=== PATIENT | male | born 1945 | race Caucasian/White ===

== ENCOUNTER 2017-08-12 13:33 | Emergency (ER) | payer MEDICARE, OTHER ==
[~2017-08-12] VITALS: Ht 185.4 cm; Wt 93.6 kg
[~2017-08-12 13:33] MED LIST: CIPR-9 PO; CODE30TA PO; MORP1TAB25 PO; XARE20TA PO
[2017-08-12] MEDS ORDERED: IOHEXOL 350 MG/ML 10 ML VIAL (for RAD DIAG) IVCONTRAST ONE (13:34)
[2017-08-12 13:35] VITALS: BP 139/74; PULSE 102; RESP 16; TEMP 100.3; O2SAT 96
[2017-08-12 13:53] LABS: BLOOD, URINE SMALL (NEG); GLUCOSE,URINE NEG (NEG); KETONE, URINE NEG (NEG); NITRITE,URINE NEG (NEG)
[2017-08-12 13:55] LABS: METHOD OF COLLECTION CLEAN CATCH; URINE COLOR YELLOW (YELLW/STRAW)
[2017-08-12 13:58] LABS: COMMENT (UR) CULTURE INDICATED; CULTURE IF INDICATED CULTURE INDICATED; RBC, URINE 0-3 /hpf (0-3)
[2017-08-12 14:10] VITALS: BP 120/77; PULSE 98; RESP 16; O2SAT 93
[2017-08-12 14:24] LABS: AUTOMATED NEUTROPHIL # 9.9 TH/MM3 (1.8-7.7); BASOPHIL # 0.1 TH/MM3 (0-0.2); BASOPHIL % 0.5 % (0.0-2.0); EOSINOPHIL % 0.4 % (0.0-4.0); HEMATOCRIT 32.4 % (39.0-51.0); HEMO FLAGS DIFF FINAL; LYMPH % 5.2 % (9.0-44.0); LYMPHOCYTE # 0.6 TH/MM3 (1.0-4.8); MEAN CELL VOLUME 86.1 FL (80.0-100.0); MEAN CORPUSCULAR HEMOGLOBIN 28.2 PG (27.0-34.0); MEAN CORPUSCULAR HGB CONC 32.7 % (32.0-36.0); MONO % 8.6 % (0.0-8.0); NEUT % 85.3 % (16.0-70.0); PLATELET COUNT 281 TH/MM3 (150-450); RED BLOOD COUNT 3.76 MIL/MM3 (4.50-5.90); RED CELL DISTRIBUTION WIDTH 13.7 % (11.6-17.2); WHITE BLOOD COUNT 11.6 TH/MM3 (4.0-11.0)
[2017-08-12 14:31] LABS: CHLORIDE 95 MEQ/L (98-107); POTASSIUM 4.1 MEQ/L (3.5-5.1); SODIUM (NA) 132 MEQ/L (136-145)
[2017-08-12 14:35] LABS: ANION GAP 7 MEQ/L (5-15); BICARBONATE 29.6 MEQ/L (21.0-32.0); BLOOD UREA NITROGEN 16 MG/DL (7-18)
[2017-08-12 14:36] LABS: APTT (PATIENT) 35.2 SEC (24.3-30.1); INTERNATIONAL NORMALIZED RATIO 1.1 RATIO; PROTHROMBIN TIME - PATIENT 12.2 SEC (9.8-11.6)
[2017-08-12 14:38] LABS: ALT (GPT) 78 U/L (12-78); AST (GOT) 94 U/L (15-37); GLOMERULAR FILTRATION RATE 74 ML/MIN (>89)
[2017-08-12 14:40] LABS: TOTAL BILIRUBIN ADULT 0.5 MG/DL (0.2-1.0)
[2017-08-12 14:41] LABS: ALKALINE PHOSPHATASE 156 U/L (45-117)
--- NOTE | 2017-08-12 14:47 | RADRPT ---
EXAM DATE/TIME: 08/12/2017 14:26 [facility] COMPARISON: CHEST SINGLE AP, July 17, 2015, 14:36. INDICATIONS : Fever post recent prostate removal. MEDICAL HISTORY : Hypercholesterolemia. Hypertension Arthritis. TIA. A-fib. CAD. SURGICAL HISTORY : Total knee replacement, left. Total knee replacement, right. Cardiac ablation. Cardiac cath. Right s houlder. Right ankle. ENCOUNTER: Initial ACUITY: 2 days PAIN SCORE: 0/10 LOCATION: chest FINDINGS: A single view of the chest demonstrates the lungs to be symmetrically aerated without evidence of mas s, infiltrate or effusion. The cardiomediastinal contours are unremarkable. Osseous structures are intact. CONCLUSION: No acute cardiopulmonary disease. Brett Mcginnis MD on August 12, 2017 at 14:45 Board Certified Radiologist. This report was verified electronically.
[2017-08-12] MEDS ORDERED: cefTRIAXone INJ 1,000 MG in SODIUM CHLORIDE 0.9% INJ 100 ML IV ONE (15:00)
[2017-08-12] MEDS ORDERED: SIMV5TAB3 PO (15:05)
[2017-08-12] MEDS ORDERED: HYDR50TA3 PO (15:05)
[2017-08-12] MEDS ORDERED: METO25TA6 PO (15:05)
[2017-08-12] MEDS ORDERED: GABA300C5 PO (15:05)
--- NOTE | 2017-08-12 15:10 | PD ---
HPI Chief Complaint: Fever Time Seen by Provider: 13:47 Travel History International Travel<30 days: No Contact w/Intl Traveler<30days: No Traveled to known affect area: No History of Present Illness HPI PATIENT STATES THAT HE HAS HAD FEVER OVER LAST 4 DAYS OR SO. PREVIOUS TO THIS HAD A PROSTATE PROCEDURE AT BEGINNING OF (ADVISED TO STOP XARELTO DURING THAT TIME WHICH HE DID, BUT HE NEVER RESTARTED IT) AND A FEW WEEKS LATER HE DEVELOPED SOME REDNESS AND DRAINAGE FROM TUBING OVER HIS ABDOMEN, HE WAS STARTED ON PO ABX AND APPARENTLY IMPROVED (JUST FINISHED LEVAQUIN ABOUT 4-5 DAYS AGO)...PATIENT STARTED HAVING DYSURIA AND FREQUENCY AND WAS TOLD TO TAKE AZO BY HOME HEALTH PROVIDER. PATIENT IS HERE ESSENTIALLY FOR FEVER. PFSH Past Medical History Hx Anticoagulant Therapy: Yes (XARELTO) Arthritis: Yes Asthma: No Atrial Fibrillation: Yes Blood Disorders: No Anxiety: No Heart Rhythm Problems: Yes (AFIB) Cancer: No Cardiac Catheterization: Yes Cardiovascular Problems: Yes (AF) High Cholesterol: Yes Chemotherapy: No Chest Pain: No Congestive Heart Failure: No COPD: No Cerebrovascular Accident: Yes (TIA) Coronary Artery Disease: Yes Diabetes: No Diminished Hearing: No Endocrine: No GERD: No Hiatal Hernia: No Heparin Induced Thrombocytopen: Yes Hypertension: Yes Musculoskeletal: Yes (r arthritis, orthopedic surgeries) Neurologic: Yes Immunizations Current: Yes Tetanus Vaccination: < 5 Years Influenza Vaccination: Yes Past Surgical History Abdominal Surgery: No AICD: No Arteriovenous Shunt: No Cardiac Surgery: Yes (ABLATION) Ear Surgery: No Endocrine Surgery: No Eye Surgery: No Genitourinary Surgery: No Gynecologic Surgery: No Joint Replacement: Yes (r knee;L KNEE) Oral Surgery: No Thoracic Surgery: No Other Surgery: Yes (R SHOULDER, R ANKLE) Social History Alcohol Use: No Tobacco Use: No Substance Use: No Allergies-Medications (Allergen,Severity, Reaction): Coded Allergies: No Known Allergies (Unverified , 08/12/17) Reported Meds & Prescriptions Reported Meds & Active Scripts Active Bactrim DS (Sulfamethoxazole-Trimethoprim) 800-160 Mg Tab 1 Tab PO BID Reported Hydrochlorothiazide 50 Mg Tab Unknown Dose PO DAILY Gabapentin 300 Mg Cap Unknown Dose PO TID Simvastatin 5 Mg Tab Unknown Dose PO DAILY Metoprolol Succinate ER 24 HR (Metoprolol Succinate) 25 Mg Tab Unknown Dose PO DAILY Codeine Sulfate 30 Mg Tab 30 Mg PO Q4HR PRN Morphine ER (Morphine Sulfate) 30 Mg Tab 30 Mg PO BID Review of Systems Except as stated in HPI: all other systems reviewed are Neg General / Constitutional: Positive: Fever Genitourinary: Positive: Urgency, Frequency, Dysuria Physical Exam Narrative GENERAL: SKIN: Warm and dry. HEAD: Atraumatic. Normocephalic. EYES: Pupils equal and round. No scleral icterus. No injection or drainage. ENT: No nasal bleeding or discharge. Mucous membranes pink and moist. NECK: Trachea midline. No JVD. CARDIOVASCULAR: Regular rate and rhythm. RESPIRATORY: No accessory muscle use. Clear to auscultation. Breath sounds equal bilaterally. GASTROINTESTINAL: Abdomen soft, non-tender, nondistended. SUPRAPUBIC INCISION IS HEALING WELL, WITHOUT INDURATION OR DRAINAGE MUSCULOSKELETAL: Extremities without clubbing, cyanosis, or edema. No obvious deformities. NEUROLOGICAL: Awake and alert. No obvious cranial nerve deficits. Motor grossly within normal limits. Five out of 5 muscle strength in the arms and legs. Normal speech. PSYCHIATRIC: Appropriate mood and affect; insight and judgment normal. Data Data Last Documented VS Vital Signs Date Time Temp Pulse Resp B/P (MAP) Pulse Ox O2 Delivery O2 Flow Rate FiO2 08/12/17 16:29 08/12/17 16:18 100.7 87 16 96 Room Air Orders Orders Urinalysis - C+S If Indicated (08/12/17 13:41) Urine Culture (08/12/17 13:45) Complete Blood Count With Diff (08/12/17 13:57) Comprehensive Metabolic Panel (08/12/17 13:57) Troponin I (08/12/17 13:57) Prothrombin Time / Inr (Pt) (08/12/17 13:57) Act Partial Throm Time (Ptt) (08/12/17 13:57) Lipase (08/12/17 13:57) Thyroid Stimulating Hormone (08/12/17 13:57) Influenzae A/B Antigen (08/12/17 13:57) Chest, Single Ap (08/12/17 13:57) Iv Access Insert/Monitor (08/12/17 13:57) Ecg Monitoring (08/12/17 13:57) Oximetry (08/12/17 13:57) Ct Abd/Pel W Iv Contrast(Rout) (08/12/17 14:02) Ct Pulmonary Angiogram (08/12/17 14:17) Us Leg Venous Doppler Bilat (08/12/17 14:17) Ceftriaxone Inj (Rocephin Inj) (08/12/17 15:00) Iohexol 350 Inj (Omnipaque 350 Inj) (08/12/17 13:34) Ibuprofen (Motrin) (08/12/17 15:45) Labs Laboratory Tests Test 08/12/17 13:45 08/12/17 14:19 Urine Collection Type CLEAN CATCH Urine Color YELLOW Urine Turbidity CLEAR Urine pH 6.0 Urine Specific [place] 1.020 Urine Protein TRACE mg/dL Urine Glucose (UA) NEG mg/dL Urine Ketones NEG mg/dL Urine Occult Blood SMALL Urine Nitrite NEG Urine Bilirubin NEG Urine Leukocyte Esterase TRACE Urine RBC 0-3 /hpf Urine WBC 20-24 /hpf Urine WBC Clumps OCC Microscopic Urinalysis Comment CULTURE INDICATED White Blood Count 11.6 TH/MM3 Red Blood Count 3.76 MIL/MM3 Hemoglobin 10.6 GM/DL Hematocrit 32.4 % Mean Corpuscular Volume 86.1 FL Mean Corpuscular Hemoglobin 28.2 PG Mean Corpuscular Hemoglobin Concent 32.7 % Red Cell Distribution Width 13.7 % Platelet Count 281 TH/MM3 Mean Platelet Volume 8.4 FL Neutrophils (%) (Auto) 85.3 % Lymphocytes (%) (Auto) 5.2 % Monocytes (%) (Auto) 8.6 % Eosinophils (%) (Auto) 0.4 % Basophils (%) (Auto) 0.5 % Neutrophils # (Auto) 9.9 TH/MM3 Lymphocytes # (Auto) 0.6 TH/MM3 Monocytes # (Auto) 1.0 TH/MM3 Eosinophils # (Auto) 0.0 TH/MM3 Basophils # (Auto) 0.1 TH/MM3 CBC Comment DIFF FINAL Differential Comment Prothrombin Time 12.2 SEC Prothromb Time International Ratio 1.1 RATIO Activated Partial Thromboplast Time 35.2 SEC Blood Urea Nitrogen 16 MG/DL Creatinine 0.99 MG/DL Random Glucose 103 MG/DL Total Protein 7.2 GM/DL Albumin 2.4 GM/DL Calcium Level 8.8 MG/DL Alkaline Phosphatase 156 U/L Aspartate Amino Transf (AST/SGOT) 94 U/L Alanine Aminotransferase (ALT/SGPT) 78 U/L Total Bilirubin 0.5 MG/DL Sodium Level 132 MEQ/L Potassium Level 4.1 MEQ/L Chloride Level 95 MEQ/L Carbon Dioxide Level 29.6 MEQ/L Anion Gap 7 MEQ/L Estimat Glomerular Filtration Rate 74 ML/MIN Troponin I LESS THAN 0.02 NG/ML Lipase 117 U/L Thyroid Stimulating Hormone 3rd Gen 1.040 uIU/ML MDM Medical Decision Making Medical Screen Exam Complete: Yes Emergency Medical Condition: Yes Medical Record Reviewed: Yes Differential Diagnosis UTI V INTRABDOMINAL ABSCESS V FLU V PNA Narrative Course PATIENT DID NOT SHOW ANY MAJOR LEUKOCYTOSIS, OR SHIFT...FOUND TO HAVE NEG FLU, NO E/O PNA ON CXR, BUT UA C/W UTI AND PATIENT WAS GIVEN IV ABX. ALSO FOR THE SAKE OF COMPLETENESS CT ABD/PELVIS WELL USS WHICH WERE NEG FOR DVT. Diagnosis Primary Impression: UTI Patient Instructions: General Instructions, Urinary Tract Infection in Men (DC) Additional Instructions: PLEASE RESTART YOUR XARELTO, AND TAKE YOUR ANTIBIOTIC FOR TREATMENT OF YOUR BLADDER INFECTION and follow up with your urologist Scripts Sulfamethoxazole-Trimethoprim (Bactrim DS) 800-160 Mg Tab 1 TAB PO BID for Infection, #20 TAB 0 Refills Prov: Jerome Dickinson MD 08/12/17 Disposition: 01 DISCHARGE HOME Condition: Stable Jerome Dickinson MD Aug 12, 2017 15:10
--- NOTE | 2017-08-12 15:21 | RADRPT ---
EXAM DATE/TIME: 08/12/2017 14:53 [facility] COMPARISON: No previous studies available for comparison. INDICATIONS : Bilateral lower extremity edema. Recently stopped Xarelto. MEDICAL HISTORY : Hypercholesterolemia. Hypertension. Transient ischemic attack. Coronary artery disease. Anticoagulan t therapy, Xarelto. Atrial fibrillation. Arthritis. SURGICAL HISTORY : Prostatectomy. Cardiac catheterization. Cardiac ablation. Joint replacement, bilateral knees. Right s houlder surgery. Right ankle surgery. ENCOUNTER: Initial ACUITY: 1 day PAIN SCORE: 2/10 LOCATION: Bilateral legs. TECHNIQUE: Venous ultrasound of the left and right leg was performed from the inguinal ligament to the proximal calf. Real-time, color Doppler and spectral tracing, compression and augmentation techniques were us ed. FINDINGS: RIGHT LEG: There is normal compressibility of the deep venous system from the inguinal region to the proximal ca lf. No echogenic clot is seen in the lumen of the common femoral, femoral, popliteal, and posterior tibial veins. There is a normal response of the venous system to proximal and distal augmentation an d respiration. LEFT LEG: There is normal compressibility of the deep venous system from the inguinal region to the proximal ca lf. No echogenic clot is seen in the lumen of the common femoral, femoral, popliteal, and posterior tibial veins. There is a normal response of the venous system to proximal and distal augmentation an d respiration. CONCLUSION: 1. No sonographic evidence for lower extremity DVT. Brett Mcginnis MD on August 12, 2017 at 15:20 Board Certified Radiologist. This report was verified electronically.
[2017-08-12 15:31] VITALS: BP 135/75; PULSE 94; RESP 16; TEMP 101.4; O2SAT 95
[2017-08-12] MEDS ORDERED: BACT800T5 PO (15:35)
--- NOTE | 2017-08-12 15:44 | RADRPT ---
EXAM DATE/TIME: 08/12/2017 15:18 [facility] COMPARISON: CT PULMONARY ANGIOGRAM, July 17, 2015, 16:40. INDICATIONS : Recent prostatectomy, fever IV CONTRAST: 95 cc Omnipaque 350 (iohexol) IV ; Cumulative dose for multiple exams. RADIATION DOSE: 21.09 CTDIvol (mGy) ; Combined studies - Abdomen/Pelvis MEDICAL HISTORY : Hypertension. Cardiovascular disease SURGICAL HISTORY : Prostatectomy. ENCOUNTER: Initial ACUITY: 1 day PAIN SCALE: 4/10 LOCATION: chest TECHNIQUE: Volumetric scanning of the chest was performed using a pulmonary embolism protocol MIP images were re constructed. Using automated exposure control and adjustment of the mA and/or kV according to patien t size, radiation dose was kept as low as reasonably achievable to obtain optimal diagnostic quality images. DICOM format image data is available electronically for review and comparison. Follow-up recommendations for detected pulmonary nodules are based at a minimum on nodule size and pa tient risk factors according to Fleischner Society Guidelines. FINDINGS: PULMONARY ARTERIES: No filling defects are seen in the pulmonary arteries through the segmental level. LUNGS: Stable minimal linear parenchymal opacities at the lung bases. No new focal minimal opacities. PLEURAE: There is no pleural thickening or pleural effusion. MEDIASTINUM: Moderate coronary artery calcifications. Heart is otherwise unremarkable. No significant mediastinal adenopathy. MUSCULOSKELETAL: No abnormal lytic or blastic bony lesions. MISCELLANEOUS: The visualized upper abdominal organs demonstrate no acute abnormality. CONCLUSION: 1. No evidence for pulmonary artery embolism through the segmental level. 2. Stable bibasilar scarring. 3. Moderate coronary calcifications. Brett Mcginnis MD on August 12, 2017 at 15:37 Board Certified Radiologist. This report was verified electronically.
[2017-08-12] MEDS ORDERED: IBUPROFEN 800 MG TAB PO ONE (15:45)
--- NOTE | 2017-08-12 15:56 | RADRPT ---
EXAM DATE/TIME: 08/12/2017 15:18 [facility] COMPARISON: No previous studies available for comparison. INDICATIONS : Abdominal pain, recent prostatectomy, fever IV CONTRAST: 95 cc Omnipaque 350 (iohexol) IV ; Cumulative dose for multiple exams. ORAL CONTRAST: No oral contrast ingested. RADIATION DOSE: 21.15 CTDIvol (mGy) MEDICAL HISTORY : Hypertension. Cardiovascular disease SURGICAL HISTORY : Prostatectomy. ENCOUNTER: Initial ACUITY: 1 day PAIN SCALE: 4/10 LOCATION: Abdminal pain Patient was premedicated for underlying contrast media allergy. TECHNIQUE: Volumetric scanning of the abdomen and pelvis was performed. Using automated exposure control and ad justment of the mA and/or kV according to patient size, radiation dose was kept as low as reasonably achievable to obtain optimal diagnostic quality images. DICOM format image data is available electro nically for review and comparison. FINDINGS: LOWER LUNGS: Minimal basilar atelectasis. LIVER: Homogeneous density without lesion. There is no dilation of the biliary tree. No calcified gallston es. SPLEEN: Normal size without lesion. PANCREAS: Within normal limits. KIDNEYS: Small lower pole right renal cyst. No suspicious mass, stone or hydronephrosis. ADRENAL GLANDS: Within normal limits. VASCULAR: There is no aortic aneurysm. BOWEL/MESENTERY: The stomach, small bowel, and colon demonstrate no acute abnormality. There is no free intraperitone al air or fluid. ABDOMINAL WALL: Within normal limits. RETROPERITONEUM: There is no lymphadenopathy. BLADDER: Mild displacement and wall thickening associated with extraperitoneal pelvic process REPRODUCTIVE: Helpful surgical clips consistent with stated history of prostatectomy. There is a circumscribed low density collection in the medial right inguinal and distal external iliac region with some adjacent s urgical clips, presumably representing a postoperative fluid collection. The dominant collection iris ures just greater than 5.5 cm. There are couple of tiny adjacent collections more posterior. INGUINAL: Significant induration and mild rosalee enlargement primarily lateral to and below the level of the abo ve-described fluid density collection MUSCULOSKELETAL: Within normal limits for patient age. CONCLUSION: 5.6 cm medial right inguinal and external iliac region fluid density collection with significant surr ounding induration and adjacent mild rosalee enlargement. This may be a postoperative fluid collection. Percutaneous sampling or drainage does appear feasible Mikal Horton MD on August 12, 2017 at 15:47 Board Certified Radiologist. This report was verified electronically.
[2017-08-12 16:18] VITALS: BP 129/67; PULSE 87; RESP 16; TEMP 100.7; O2SAT 96
--- NOTE | 2017-08-13 10:07 | ED.CB ---
ED Call Back Communication I was asked to review this patient's CT findings from yesterday. The patient has a CT abdomen and pelvis on file from yesterday which demonstrates a 5.6 cm medial right inguinal and external iliac fluid collection with some surrounding induration and rosalee enlargement. The patient has had persistent fevers ever since his prostatectomy. Its unclear to me if the prior provider was aware of this finding. I did speak to the patient, and he says he still doesn't feel well and is still having fevers. He was 100.7 in the emergency department yesterday. I think it's reasonable to have the patient reassessed by an emergency physician to see if this fluid collection is something that needs to be drained. I tried to call Dr. Mcdaniels who is the patient's urologist but he has yet to call me back as he is in surgery all day. The patient says he will go to the [facility] emergency department in 30 minutes or so and I did pass this on to the current staff. Enma Hernandez MD Aug 13, 2017 10:07
[2017-08-13] MEDS ORDERED: XARE20TA PO (12:22)
== END 2017-08-12 17:00 | disposition home or self-care (01) ==
LOC: PHED 13:33
DX: N39.0 Urinary tract infection, site not specified (principal); E78.00 Pure hypercholesterolemia, unspecified; I10 Essential (primary) hypertension; I25.10 Atherosclerotic heart disease of native coronary artery without angina pectoris; I48.91 Unspecified atrial fibrillation; Z86.73 Personal history of transient ischemic attack (TIA), and cerebral infarction without residual deficits; Z79.01 Long term (current) use of anticoagulants
CPT/HCPCS: 71010; 71275; 74177; 80053; 81001; 83690; 84443; 84484; 85025; 85610; 85730; 87086; 87804; 93970; 96365; 99285; J0696; Q9967

== ENCOUNTER 2017-08-13 11:09 | Inpatient (IN) | payer MEDICARE, OTHER ==
[~2017-08-13] VITALS: Ht 185.4 cm; Wt 91.9 kg
[~2017-08-13 11:09] MED LIST changes: +BACT800T5 PO; -CIPR-9 PO; +GABA300C5 PO; +HYDR50TA3 PO; +METO25TA6 PO; +SIMV5TAB3 PO; -XARE20TA PO
[2017-08-13 11:11] VITALS: BP 127/71; PULSE 99; RESP 18; TEMP 100.4; O2SAT 97
[2017-08-13] MEDS ORDERED: XARE20TA PO (12:22)
--- NOTE | 2017-08-13 13:13 | PD ---
HPI Chief Complaint: Fever Time Seen by Provider: 12:21 Travel History International Travel<30 days: No Contact w/Intl Traveler<30days: No Traveled to known affect area: No History of Present Illness HPI This is a 72-year-old male with a history of prostatectomy on 07/16/2017, who presents today with complaints of fever and pain in his right inguinal area. The patient reports that shortly after his prostatectomy, he was noting some redness and drainage from his J-tube. They're concerned that there may have been pus coming from the J-tube initially. He reports he was supposed to have home health nurse come immediately on discharge from [facility] however he reports no one showed up for at least 7 days. He states that when they did follow up with the urologist, the urologist did not feel as though there was an infection. He did start the patient on antibiotics to cover according to the patient. The patient was seen yesterday at [facility]. At that time he was found to have a urinary tract infection. He had a CT scan of his abdomen pelvis at that time. The CAT scans were reevaluated this morning and upon review of the CT and pelvis, there was a 5.6 cm collection of fluid in the right inguinal area that was thought to be possibly postsurgical an infectious. He was called and told to come to the main hospital for evaluation. The patient reports that he still having chills and fevers. He reports increasing pain in his right inguinal area. He is here and hopeful that we can drain this and get him feeling better. PFSH Past Medical History Hx Anticoagulant Therapy: Yes (XARELTO) Arthritis: Yes Asthma: No Atrial Fibrillation: Yes Blood Disorders: No Anxiety: No Heart Rhythm Problems: Yes (AFIB) Cancer: No Cardiac Catheterization: Yes Cardiovascular Problems: Yes (AFIB) High Cholesterol: Yes Chemotherapy: No Chest Pain: No Congestive Heart Failure: No COPD: No Cerebrovascular Accident: Yes Coronary Artery Disease: Yes Diabetes: No Diminished Hearing: No Endocrine: No GERD: No Hiatal Hernia: No Heparin Induced Thrombocytopen: Yes Hypertension: Yes Musculoskeletal: Yes (r arthritis, orthopedic surgeries) Neurologic: Yes Immunizations Current: Yes Tetanus Vaccination: < 5 Years Influenza Vaccination: Yes Past Surgical History Abdominal Surgery: No AICD: No Arteriovenous Shunt: No Cardiac Surgery: Yes (ABLATION) Ear Surgery: No Endocrine Surgery: No Eye Surgery: No Genitourinary Surgery: Yes (PROSTATECTOMY) Gynecologic Surgery: No Joint Replacement: Yes (r knee;L KNEE) Oral Surgery: No Thoracic Surgery: No Other Surgery: Yes (R SHOULDER, R ANKLE) Social History Alcohol Use: No Tobacco Use: No Substance Use: No Allergies-Medications (Allergen,Severity, Reaction): Coded Allergies: No Known Allergies (Unverified , 08/13/17) Reported Meds & Prescriptions Reported Meds & Active Scripts Active Bactrim DS (Sulfamethoxazole-Trimethoprim) 800-160 Mg Tab 1 Tab PO BID Reported Xarelto (Rivaroxaban) 20 Mg Tab 20 Mg PO DAILY Hydrochlorothiazide 50 Mg Tab Unknown Dose PO DAILY Gabapentin 300 Mg Cap Unknown Dose PO TID Simvastatin 5 Mg Tab Unknown Dose PO DAILY Metoprolol Succinate ER 24 HR (Metoprolol Succinate) 25 Mg Tab Unknown Dose PO DAILY Codeine Sulfate 30 Mg Tab 30 Mg PO Q4HR PRN Morphine ER (Morphine Sulfate) 30 Mg Tab 30 Mg PO BID Review of Systems Except as stated in HPI: all other systems reviewed are Neg General / Constitutional: Positive: Fever, Chills HENT: No: Headaches, Neck Pain Cardiovascular: No: Chest Pain or Discomfort, Palpitations Respiratory: No: Cough, Shortness of Breath Gastrointestinal: Positive: Nausea, Abdominal Pain, Constipation (right lower quadrant), Loss of Appetite, No: Vomiting Genitourinary: Positive: Pelvic Pain (right lower), No: Dysuria, Flank Pain Musculoskeletal: No: Weakness, Pain Neurologic: No: Weakness, Dizziness, Headache Physical Exam Narrative GENERAL: Well-developed well-nourished male in no acute respiratory distress. SKIN: Focused skin assessment warm/dry. HEAD: Atraumatic. Normocephalic. EYES: Pupils equal and round. No scleral icterus. No injection or drainage. ENT: No nasal bleeding or discharge. Mucous membranes pink and moist. NECK: Trachea midline. Supple. CARDIOVASCULAR: Regular rate and rhythm. No murmur appreciated. RESPIRATORY: No accessory muscle use. Clear to auscultation. Breath sounds equal bilaterally. GASTROINTESTINAL: Abdomen soft, nondistended. On examination the patient's pelvic area, he has tenderness to palpation in his suprapubic area and right inguinal area. There is no obvious drainage noted. MUSCULOSKELETAL: No obvious deformities. No clubbing. No cyanosis. No edema. NEUROLOGICAL: Awake and alert. No obvious cranial nerve deficits. Motor grossly within normal limits. Normal speech. PSYCHIATRIC: Appropriate mood and affect; insight and judgment normal. Data Data Last Documented VS Vital Signs Date Time Temp Pulse Resp B/P (MAP) Pulse Ox O2 Delivery O2 Flow Rate FiO2 08/13/17 11:11 100.4 99 18 127/71 (89) 97 Room Air Orders Orders Complete Blood Count With Diff (08/13/17 12:54) Comprehensive Metabolic Panel (08/13/17 12:54) Prothrombin Time / Inr (Pt) (08/13/17 12:54) Act Partial Throm Time (Ptt) (08/13/17 12:54) Blood Culture (08/13/17 12:54) Iv Access Insert/Monitor (08/13/17 12:54) Ecg Monitoring (08/13/17 12:54) Oximetry (08/13/17 12:54) Piperacil-Tazo 3.375 Gm Premix (Zosyn 3. (08/13/17 14:00) Ct Assisted Abscess Drain (08/13/17 ) Diet Npo (08/13/17 Dinner) Vital Signs (Adult) JONATHAN.Q4H (08/13/17 14:11) Piperacil-Tazo 3.375 Gm Premix (Zosyn 3. (08/13/17 20:00) Acetaminophen (Tylenol) (08/13/17 14:15) Ondansetron Inj (Zofran Inj) (08/13/17 14:15) ^ Other Nursing Orders (08/13/17 14:11) Complete Blood Count With Diff (08/14/17 06:00) Admit To Inpatient (08/13/17 ) Inpatient Certification (08/13/17 ) Lidocaine 1% Inj (Xylocaine 1% Inj) (08/13/17 14:16) Scd Bilateral/Knee High JONATHAN.QSHIFT (08/13/17 14:26) Admit Order (Ed Use Only) (08/13/17 14:42) Labs Laboratory Tests Test 08/13/17 13:00 08/13/17 13:55 White Blood Count 14.6 TH/MM3 Red Blood Count 4.02 MIL/MM3 Hemoglobin 11.5 GM/DL Hematocrit 34.9 % Mean Corpuscular Volume 86.9 FL Mean Corpuscular Hemoglobin 28.7 PG Mean Corpuscular Hemoglobin Concent 33.0 % Red Cell Distribution Width 14.6 % Platelet Count 330 TH/MM3 Mean Platelet Volume 9.3 FL Neutrophils (%) (Auto) 88.3 % Lymphocytes (%) (Auto) 4.6 % Monocytes (%) (Auto) 6.3 % Eosinophils (%) (Auto) 0.4 % Basophils (%) (Auto) 0.4 % Neutrophils # (Auto) 12.9 TH/MM3 Lymphocytes # (Auto) 0.7 TH/MM3 Monocytes # (Auto) 0.9 TH/MM3 Eosinophils # (Auto) 0.1 TH/MM3 Basophils # (Auto) 0.1 TH/MM3 CBC Comment DIFF FINAL Differential Comment Prothrombin Time 13.8 SEC Prothromb Time International Ratio 1.2 RATIO Activated Partial Thromboplast Time 36.4 SEC Blood Urea Nitrogen 14 MG/DL Creatinine 0.94 MG/DL Random Glucose 100 MG/DL Albumin 2.3 GM/DL Calcium Level 8.4 MG/DL Alkaline Phosphatase 163 U/L Aspartate Amino Transf (AST/SGOT) 54 U/L Alanine Aminotransferase (ALT/SGPT) 68 U/L Total Bilirubin 0.4 MG/DL Sodium Level 133 MEQ/L Potassium Level 4.0 MEQ/L Chloride Level 97 MEQ/L Estimat Glomerular Filtration Rate 78 ML/MIN [facility] Medical Decision Making Medical Screen Exam Complete: Yes Emergency Medical Condition: Yes Differential Diagnosis Abscess versus postsurgical fluid collection versus pyelonephritis versus cystitis Narrative Course 72-year-old male status post prostatectomy on 07/16/2017. The patient presents here with fever and pain. He seen at [facility] and diagnosed with a UTI. A CT scan of his and pelvis was also performed. The CT results were reviewed this morning and found to have a 5.6 abscess in his right lower pelvic region. The patient will be admitted to the hospital. He'll have interventional radiology drain his right pelvic abscess. Patient's been started on Zosyn. He has blood cultures pending as well as a urine culture from yesterday. He has a temperature of 100.4 here. He also has an elevated white blood cell count. The case was discussed with the [facility] hospitalist team. They're amenable to admitting the patient to their service. Diagnosis Primary Impression: postop pelvic fluid collection Additional Impressions: Leukocytosis Fever Status post prostatectomy Admitting Information Admitting Physician Requests: Admit Devin Lancaster MD Aug 13, 2017 13:13
[2017-08-13 13:22] LABS: AUTOMATED NEUTROPHIL # 12.9 TH/MM3 (1.8-7.7); BASOPHIL # 0.1 TH/MM3 (0-0.2); BASOPHIL % 0.4 % (0.0-2.0); EOSINOPHIL # 0.1 TH/MM3 (0-0.4); EOSINOPHIL % 0.4 % (0.0-4.0); HEMATOCRIT 34.9 % (39.0-51.0); HEMO FLAGS DIFF FINAL; LYMPH % 4.6 % (9.0-44.0); LYMPHOCYTE # 0.7 TH/MM3 (1.0-4.8); MEAN CELL VOLUME 86.9 FL (80.0-100.0); MEAN CORPUSCULAR HEMOGLOBIN 28.7 PG (27.0-34.0); MONO % 6.3 % (0.0-8.0); NEUT % 88.3 % (16.0-70.0); PLATELET COUNT 330 TH/MM3 (150-450); RED BLOOD COUNT 4.02 MIL/MM3 (4.50-5.90); RED CELL DISTRIBUTION WIDTH 14.6 % (11.6-17.2); WHITE BLOOD COUNT 14.6 TH/MM3 (4.0-11.0)
[2017-08-13 13:29] LABS: INTERNATIONAL NORMALIZED RATIO 1.2 RATIO; PROTHROMBIN TIME - PATIENT 13.8 SEC (9.8-11.6)
[2017-08-13 13:30] LABS: APTT (PATIENT) 36.4 SEC (24.3-30.1)
[2017-08-13] MEDS ORDERED: PIPERACIL-TAZO 3.375 GM PREMIX 50 ML IV ONE (14:00)
[2017-08-13] MEDS ORDERED: ONDANSETRON HCL 4 MG/2 ML VIAL IV PUSH PRN (14:15)
[2017-08-13] MEDS ORDERED: ACETAMINOPHEN 325 MG TAB PO PRN (14:15)
[2017-08-13] MEDS ORDERED: LIDOCAINE HCL 1% 30 ML VIAL ONE ×2 (14:16→15:12)
--- NOTE | 2017-08-13 14:25 | HHI.HP ---
[facility] Admission Diagnosis post-op fluid collection Diagnoses: (1) psot-op fluid collection Diagnosis: Principal Chief Complaint: right lower abdominal pain Travel History International Travel<30 Days: No Contact w/Intl Traveler <30 Da: No Traveled to Known Affected Are: No Sepsis Criteria SIRS Criteria (2 or more): Heart rate over 90, WBC > 84347, < 4000 or > 10% bands Sepsis Criteria (SIRS+source): Infect source susp/known Criteria Outcome: Meets sepsis criteria History of Present Illness patient is a 72 y/o male with history of prostate cancer- s/p prostatectomy about a month ago presented to ER with right lower abdominal pain. he says that he noticed some erythema and pain to the right lower abdomen about two weeks ago. he was seen by his urologist and was given a prescription for cipro which he took for five days. however he was feeling weak, with no appetite and on and off fever and chills. he had a fever of 102 yesterday for which he was advised to go to ER by his [facility] nurse. he had a CT of the abdomen in ER and was sent home with a prescription of Bactrim with the impression of UTI. however he says that he was called today to come back to ER since he was found to have a fluid collection.at the time of my evaluation he was fairly comfortable with mild pain. had a low grade fever at the time of presentation. Review of Systems Constitutional: COMPLAINS OF: Fatigue, Fever, Chills, DENIES: Weight loss, Night Sweats Eyes: DENIES: Blurred vision, Diplopia, Vision loss, Double Vision Ears, nose, mouth, throat: DENIES: Tinnitus, Vertigo, Throat pain, Epistaxis Respiratory: DENIES: Apneas, Cough, Snoring, Wheezing, Hemoptysis, Sputum production, Shortness of breath Cardiovascular: DENIES: Chest pain, Palpitations, Syncope, Dyspnea on Exertion , PND, Lower Extremity Edema, Orthopnea, Claudication Gastrointestinal: COMPLAINS OF: Abdominal pain, DENIES: Black stools, Bloody stools, Constipation, Diarrhea, Nausea, Vomiting, Difficulty Swallowing, Anorexia Genitourinary: DENIES: Urinary frequency, Urgency, Hematuria, Dysuria Musculoskeletal: DENIES: Joint pain, Muscle aches, Stiffness, Joint Swelling Integumentary: DENIES: Rash Neurologic: DENIES: Abnormal gait, Headache, Localized weakness, Paresthesias, Seizures, Speech Problems, Tremor, Poor Balance Psychiatric: DENIES: Anxiety, Confusion, Mood changes, Depression, Hallucinations, Agitation, Suicidal Ideation, Homicidal Ideation, Delusions Past Family Social History Past Medical History prostate cancer hypertension dyslipidemia TIA Past Surgical History recent prostate surgery Reported Medications Xarelto (Rivaroxaban) 20 Mg Tab 20 Mg PO DAILY Hydrochlorothiazide 50 Mg Tab Unknown Dose PO DAILY Gabapentin 300 Mg Cap Unknown Dose PO TID Simvastatin 5 Mg Tab Unknown Dose PO DAILY Metoprolol Succinate ER 24 HR (Metoprolol Succinate) 25 Mg Tab Unknown Dose PO DAILY Codeine Sulfate 30 Mg Tab 30 Mg PO Q4HR PRN Morphine ER (Morphine Sulfate) 30 Mg Tab 30 Mg PO BID Allergies: Coded Allergies: No Known Allergies (Unverified , 08/13/17) Active Ordered Medications Current Medications Piperacillin Sod/ Tazobactam Sod 50 ml @ 100 mls/hr ONCE ONCE IV ; Start 08/13 at 14:00; Stop 08/13/17 at 14:29 Family History not relevant to this presentation. Social History no smoking/ drinking. Physical Exam Vital Signs Vital Signs Date Time Temp Pulse Resp B/P (MAP) Pulse Ox O2 Delivery O2 Flow Rate FiO2 08/13/17 11:11 100.4 99 18 127/71 (89) 97 Room Air Physical Exam GENERAL: This is a well-nourished, well-developed patient, in no apparent distress. SKIN: No rashes, ecchymoses or lesions. Cool and dry. HEAD: Atraumatic. Normocephalic. No temporal or scalp tenderness. EYES: Pupils equal round and reactive. Extraocular motions intact. No scleral icterus. No injection or drainage. ENT: Nose without bleeding, purulent drainage or septal hematoma. Throat without erythema, tonsillar hypertrophy or exudate. Uvula midline. Airway patent. NECK: Trachea midline. No JVD or lymphadenopathy. Supple, nontender, no meningeal signs. CARDIOVASCULAR: Regular rate and rhythm without murmurs, gallops, or rubs. RESPIRATORY: Clear to auscultation. Breath sounds equal bilaterally. No wheezes , rales, or rhonchi. GASTROINTESTINAL: Abdomen soft, mild right inguinal tenderness, nondistended.with the scar of recent surgery. MUSCULOSKELETAL: Extremities without clubbing, cyanosis, or edema. No joint tenderness, effusion, or edema noted. No calf tenderness. Negative Homans sign bilaterally. NEUROLOGICAL: Awake and alert. Cranial nerves II through XII intact. Motor and sensory grossly within normal limits. Five out of 5 muscle strength in all muscle groups. Normal speech. Laboratory Laboratory Tests Test 08/13/17 13:00 08/13/17 13:55 White Blood Count 14.6 Red Blood Count 4.02 Hemoglobin 11.5 Hematocrit 34.9 Mean Corpuscular Volume 86.9 Mean Corpuscular Hemoglobin 28.7 Mean Corpuscular Hemoglobin Concent 33.0 Red Cell Distribution Width 14.6 Platelet Count 330 Mean Platelet Volume 9.3 Neutrophils (%) (Auto) 88.3 Lymphocytes (%) (Auto) 4.6 Monocytes (%) (Auto) 6.3 Eosinophils (%) (Auto) 0.4 Basophils (%) (Auto) 0.4 Neutrophils # (Auto) 12.9 Lymphocytes # (Auto) 0.7 Monocytes # (Auto) 0.9 Eosinophils # (Auto) 0.1 Basophils # (Auto) 0.1 CBC Comment DIFF FINAL Differential Comment Prothrombin Time 13.8 Prothromb Time International Ratio 1.2 Activated Partial Thromboplast Time 36.4 Date/Time Source Procedure Growth Status 08/13/17 13:00 Blood Peripheral Aerobic Blood Culture Pending Received 08/13/17 13:00 Blood Peripheral Anaerobic Blood Culture Pending Received Result Diagram: 08/13/17 1300 Caprini VTE Risk Assessment Caprini VTE Risk Assessment: Mod/High Risk (score >= 2) VTE Pharm Contraindication: awaiting procedure. Caprini Risk Assessment Model Point Value = 1 Point Value = 2 Point Value = 3 Point Value = 5 Age 41-60 Minor surgery BMI > 25 kg/m2 Swollen legs Varicose veins or History of unexplained or recurrent spontaneous Oral contraceptives or hormone replacement Sepsis (< 1 month) Serious lung disease, including pneumonia (< 1 month) Abnormal pulmonary function Acute myocardial infarction Congestive heart failure (< 1 month) History of inflammatory bowel disease Medical patient at bed rest Age 61-74 Arthroscopic surgery Major open surgery (> 45 min) Laparoscopic surgery (> 45 min) Malignancy Confined to bed (> 72 hours) Immobilizing plaster cast Central venous access Age >= 75 History of VTE Family history of VTE Factor V Leiden Prothrombin [id number] Lupus anticoagulant Anticardiolipin antibodies Elevated serum homocysteine Heparin-induced thrombocytopenia Other congenital or acquired thrombophilia Stroke (< 1 month) Elective arthroplasty Hip, pelvis, or leg fracture Acute spinal cord injury (< 1 month) Prophylaxis Regimen Total Risk Factor Score Risk Level Prophylaxis Regimen 0-1 Low Early ambulation 2 Moderate Order ONE of the following: *Sequential Compression Device (SCD) *Heparin 5000 units SQ BID 3-4 Higher Order ONE of the following medications: *Heparin 5000 units SQ TID *Enoxaparin/Lovenox 40 mg SQ daily (WT < 150 kg, CrCl > 30 mL/min) *Enoxaparin/Lovenox 30 mg SQ daily (WT < 150 kg, CrCl > 10-29 mL/min) *Enoxaparin/Lovenox 30 mg SQ BID (WT < 150 kg, CrCl > 30 mL/min) AND/OR *Sequential Compression Device (SCD) 5 or more Highest Order ONE of the following medications: *Heparin 5000 units SQ TID (Preferred with Epidurals) *Enoxaparin/Lovenox 40 mg SQ daily (WT < 150 kg, CrCl > 30 mL/min) *Enoxaparin/Lovenox 30 mg SQ daily (WT < 150 kg, CrCl > 10-29 mL/min) *Enoxaparin/Lovenox 30 mg SQ BID (WT < 150 kg, CrCl > 30 mL/min) AND *Sequential Compression Device (SCD) Assessment and Plan Assessment and Plan A/P - sepsis due to post-op right inguinal fluid collection IR consulted for fluid drainage- continue with broad spectrum IV antibiotics- will follow the cultures- continue with pain control -hypertension/ dyslipidemia; verify and resume home meds. -TIA; Xarelto on hold for planned IR procedure -DVT prophylaxis with SCD's- Xarelto will be resumed-after the planned procedure. Discussed Condition With ER physician, the patient and his . Physician Certification 2 Midnight Certification Type: Admission for Inpatient Services Order for Inpatient Services The services are ordered in accordance with Medicare regulations or non- Medicare payer requirements, as applicable. In the case of services not specified as inpatient-only, they are appropriately provided as inpatient services in accordance with the 2-midnight benchmark. Estimated LOS (days): 2 days is the estimated time the patient will need to remain in the hospital, assuming treatment plan goals are met and no additional complications. Post-Hospital Plan: Home Health Physician Certification 2 Midnight Certification Type: Admission for Inpatient Services Order for Inpatient Services The services are ordered in accordance with Medicare regulations or non- Medicare payer requirements, as applicable. In the case of services not specified as inpatient-only, they are appropriately provided as inpatient services in accordance with the 2-midnight benchmark. Estimated LOS (days): 2 days is the estimated time the patient will need to remain in the hospital, assuming treatment plan goals are met and no additional complications. Post-Hospital Plan: Home Health Ashutosh Mayers MD Aug 13, 2017 14:25
[2017-08-13 14:28] LABS: AST (GOT) 54 U/L (15-37); CHLORIDE 97 MEQ/L (98-107); GLOMERULAR FILTRATION RATE 78 ML/MIN (>89); SODIUM (NA) 133 MEQ/L (136-145)
[2017-08-13 14:33] LABS: TOTAL BILIRUBIN ADULT 0.4 MG/DL (0.2-1.0)
[2017-08-13 14:43] LABS: ALKALINE PHOSPHATASE 163 U/L (45-117); ALT (GPT) 68 U/L (12-78); BLOOD UREA NITROGEN 14 MG/DL (7-18)
[2017-08-13 15:05] VITALS: BP 136/78; PULSE 95; RESP 18; TEMP 101.5; O2SAT 96
[2017-08-13 15:23] VITALS: BP 127/80; PULSE 91; RESP 16; TEMP 99.3; O2SAT 94
[2017-08-13] MEDS ORDERED: SODIUM CHLOR 0.9% 1000 ML INJ 1,000 ML IV ONE (15:30)
[2017-08-13 15:32] LABS: ANION GAP 7 MEQ/L (5-15); BICARBONATE 29.1 MEQ/L (21.0-32.0)
[2017-08-13] MEDS ORDERED: MIDAZOLAM HCL 5 MG/5 ML VIAL ONE (15:36)
--- NOTE | 2017-08-13 16:30 | PD.RAD ---
Post CT Procedure Prog Note Pre Procedure Diagnosis: (1) Fever Post Procedure Diagnosis: (1) Fever Procedure Date: Aug 13, 2017 Supervising Radiologist: Herminio Nielson Anesthesia: Conscious Sedation Plan of Activity Patient to Unit: Nursing Unit Patient Condition: Good See PACS Report for procedural detail/treatment Drainage Procedure Procedure 1 Imaging Guidance: CT Side: Right Procedure Type: Abscess Drainage Procedure: Placement Fluid Removal (CCs): 20 Fluid Description: Bloody, Purulent Herminio Nielson MD Aug 13, 2017 16:30
[2017-08-13 16:44] VITALS: BP 116/71; PULSE 89; RESP 17; TEMP 100; O2SAT 92
[2017-08-13 17:14] VITALS: BP 117/74; PULSE 84; RESP 16; O2SAT 94
[2017-08-13] MEDS: SODIUM CHLORIDE 0.9% 10 ML VIAL IRRIGATION SCH (17:35)
[2017-08-13 20:00] VITALS: BP 105/66; PULSE 91; RESP 16; TEMP 100; O2SAT 94
[2017-08-13] MEDS ORDERED: MORPHINE SULFATE 2 MG/ML INJ IM PRN (20:00)
[2017-08-13] MEDS: CODEINE SULFATE 30 MG TAB PO PRN (21:01)
[2017-08-13] MEDS: PIPERACIL-TAZO 3.375 GM PREMIX 50 ML IV SCH (21:16)
[2017-08-13] MEDS: GABAPENTIN 300 MG CAP PO SCH (22:00)
[2017-08-13] MEDS: MORPHINE SULFATE 2 MG/ML INJ IV PRN (22:17)
[2017-08-14] VITALS (7 sets, daily range): BP systolic 120–150; BP diastolic 61–93; PULSE 82–101; RESP 16–19; TEMP 97.6–99; O2SAT 96–97
[2017-08-14] MEDS ORDERED: diphenhydrAMINE HCL 25 MG CAP PO ONE (00:45)
[2017-08-14] MEDS: PIPERACIL-TAZO 3.375 GM PREMIX 50 ML IV SCH ×4 (01:22→21:08)
[2017-08-14 08:52] LABS: AUTOMATED NEUTROPHIL # 9.1 TH/MM3 (1.8-7.7); BASOPHIL % 0.3 % (0.0-2.0); EOSINOPHIL # 0.1 TH/MM3 (0-0.4); EOSINOPHIL % 1.1 % (0.0-4.0); HEMATOCRIT 33.1 % (39.0-51.0); HEMO FLAGS DIFF FINAL; LYMPH % 5.4 % (9.0-44.0); LYMPHOCYTE # 0.6 TH/MM3 (1.0-4.8); MEAN CELL VOLUME 85.8 FL (80.0-100.0); MEAN CORPUSCULAR HGB CONC 33.8 % (32.0-36.0); MONO % 7.7 % (0.0-8.0); NEUT % 85.5 % (16.0-70.0); PLATELET COUNT 260 TH/MM3 (150-450); RED BLOOD COUNT 3.85 MIL/MM3 (4.50-5.90); RED CELL DISTRIBUTION WIDTH 14.2 % (11.6-17.2); WHITE BLOOD COUNT 10.6 TH/MM3 (4.0-11.0)
--- NOTE | 2017-08-14 09:05 | HHI.PR ---
Subjective Remarks in no acute distress. abdominal pain is better. still with on and off low grade fever. no other complaints. Objective Vitals Vital Signs Date Time Temp Pulse Resp B/P (MAP) Pulse Ox O2 Delivery O2 Flow Rate FiO2 08/14/17 07:30 97.9 84 144/86 (105) 97 08/14/17 04:00 97.9 82 16 145/69 (94) 97 08/14/17 00:00 Room Air 08/14/17 00:00 98.4 83 16 120/61 (80) 96 08/13/17 20:00 Room Air 08/13/17 20:00 100.0 91 16 105/66 (79) 94 08/13/17 17:14 84 16 117/74 (88) 94 08/13/17 16:45 08/13/17 16:44 100.0 89 17 116/71 (86) 92 08/13/17 15:23 99.3 91 16 127/80 (96) 94 08/13/17 15:05 101.5 95 18 136/78 (97) 96 Room Air 08/13/17 11:11 100.4 99 18 127/71 (89) 97 Room Air I/O 08/13/17 08/13/17 08/13/17 08/14/17 08/14/17 08/14/17 07:00 15:00 23:00 07:00 15:00 23:00 Intake Total 50 ml 1423 ml Output Total 20 ml 1600 ml Balance 30 ml -177 ml Intake Oral 710 ml IV Total 50 ml 713 ml Output Urine Total 1550 ml Drainage Total 20 ml 50 ml # Bowel Movements 1 Result Diagram: 08/14/17 0651 08/13/17 1355 Objective Remarks GENERAL: This is a well-nourished, well-developed patient, in no apparent distress. CARDIOVASCULAR: Regular rate and regular rhythm without murmurs, gallops, or rubs. RESPIRATORY: Clear to auscultation. Breath sounds equal bilaterally. No wheezes , rales, or rhonchi. GASTROINTESTINAL: Abdomen soft, non-tender, nondistended. Normal, active bowel sounds drain in place. MUSCULOSKELETAL: Extremities without clubbing, cyanosis, or edema. NEURO: Alert & Oriented x4 to person, place, time, situation. Moves all ext x4 Procedures abdominal abscess drainage. Medications and IVs Current Medications Piperacillin Sod/ Tazobactam Sod 50 ml @ 100 mls/hr ONCE ONCE IV Last administered on 08/13/17 15:05; Start 08/13/17 at 14:00; Stop 08/13/17 at 14:29 ; Status DC Piperacillin Sod/ Tazobactam Sod 50 ml @ 100 mls/hr Q6H IV Last administered on 08/14/17 01:22; Start 08/13/17 at 20:00 Acetaminophen (Tylenol) 650 mg Q4H PRN PO FEVER/PAIN 1-10; Start 08/13/17 at 14 :15 Ondansetron HCl (Zofran Inj) 4 mg Q8HR PRN IV PUSH NAUSEA; Start 08/13/17 at 14 :15 Lidocaine HCl (Xylocaine 1% Inj) 30 ml STK-MED ONCE .ROUTE Last administered on 08/13/17 14:16; Start 08/13/17 at 14:16; Stop 08/13/17 at 14:17; Status DC Lidocaine HCl (Xylocaine 1% Inj) 30 ml STK-MED ONCE .ROUTE Last administered on 08/13/17 15:12; Start 08/13/17 at 15:12; Stop 08/13/17 at 15:13; Status DC Sodium Chloride 1,000 ml @ 70 mls/hr [id number] ONCE IV Last administered on 08/13 17:51; Start 08/13/17 at 15:30; Stop 08/14/17 at 05:47; Status DC Fentanyl Citrate (fentaNYL INJ) 200 mcg STK-MED ONCE .ROUTE Last administered on 08/13/17 16:00; Start 08/13/17 at 15:35; Stop 08/13/17 at 15:36; Status DC Midazolam HCl (Versed Inj) 5 mg STK-MED ONCE .ROUTE Last administered on 16:00; Start 08/13/17 at 15:36; Stop 08/13/17 at 15:37; Status DC Sodium Chloride (NS Inj) 10 ml DAILY@1600 IRRIGATION ; Start 08/14/17 at 16:00 Codeine Sulfate (Codeine Sulfate) 30 mg Q6H PRN PO pain >5 Last administered on 08/13/17 21:01; Start 08/13/17 at 20:00 Morphine Sulfate (Morphine Inj) 2 mg Q3H PRN IM breakthrough pain; Start at 20:00; Stop 08/13/17 at 20:30; Status DC Morphine Sulfate (Morphine Inj) 2 mg Q3H PRN IV breakthrough pain Last administered on 08/13/17 22:17; Start 08/13/17 at 20:45 Gabapentin (Neurontin) 300 mg TID PO Last administered on 08/13/17 22:00; Start 08/13/17 at 22:00 Diphenhydramine HCl (Benadryl) 25 mg ONCE ONCE PO ; Start 08/14/17 at 00:45; Stop 08/14/17 at 00:50; Status DC A/P Assessment and Plan A/P - sepsis due to post-op right inguinal fluid collection s/p fluid drainage by IR- continue with broad spectrum IV antibiotics- will follow the cultures- continue with pain control previously d/w ( his Urologist) who recommended out-patient f/u after abscess drainage. -hypertension/ dyslipidemia; will resume home meds. -TIA; will resume when ok with IR -DVT prophylaxis with SCD's- Xarelto will be resumed when ok with IR. Ashutosh Mayers MD Aug 14, 2017 09:05
[2017-08-14] MEDS: GABAPENTIN 300 MG CAP PO SCH ×3 (09:48→17:32)
[2017-08-14] MEDS: MORPHINE SULFATE 2 MG/ML INJ IV PRN (09:48)
[2017-08-14] MEDS: CODEINE SULFATE 30 MG TAB PO PRN (13:10)
[2017-08-14] MEDS ORDERED: HYDR25TA5 PO (16:37)
[2017-08-14] MEDS ORDERED: XARE20TA PO (16:37)
[2017-08-14] MEDS ORDERED: ATOR20TA15 PO (16:37)
[2017-08-14] MEDS ORDERED: METO50TA PO (16:41)
[2017-08-14] MEDS: MORPHINE SULFATE 30 MG CONTROLLED RELEASE TAB PO SCH (21:08)
[2017-08-14] MEDS: ATORVASTATIN 20 MG TAB PO SCH (21:08)
[2017-08-15 00:32] VITALS: BP 135/67; PULSE 75; RESP 17; TEMP 97.4; O2SAT 98
[2017-08-15] MEDS: PIPERACIL-TAZO 3.375 GM PREMIX 50 ML IV SCH ×4 (02:08→21:37)
[2017-08-15] MEDS: CODEINE SULFATE 30 MG TAB PO PRN ×3 (04:36→18:13)
[2017-08-15 05:03] VITALS: BP 134/71; PULSE 89; RESP 17; TEMP 98.5; O2SAT 96
[2017-08-15 07:51] VITALS: BP 144/78; PULSE 87; RESP 16; TEMP 98.5; O2SAT 94
--- NOTE | 2017-08-15 09:08 | HHI.PR ---
Subjective Remarks in no acute distress. afebrile. pain is better. no new complaints. Objective Vitals Vital Signs Date Time Temp Pulse Resp B/P (MAP) Pulse Ox O2 Delivery O2 Flow Rate FiO2 08/15/17 07:51 98.5 87 16 144/78 (100) 94 08/15/17 05:03 98.5 89 17 134/71 (92) 96 08/15/17 00:32 97.4 75 17 135/67 (89) 98 08/14/17 20:44 99.0 101 17 132/74 (93) 96 08/14/17 19:30 Room Air 08/14/17 16:06 98.5 91 18 150/84 (106) 97 08/14/17 11:00 97.6 92 16 132/93 (106) 97 08/14/17 09:40 Room Air I/O 08/14/17 08/14/17 08/14/17 08/15/17 08/15/17 08/15/17 07:00 15:00 23:00 07:00 15:00 23:00 Intake Total 1423 ml 770 ml 290 ml Output Total 1600 ml 1200 ml 630 ml Balance -177 ml -430 ml -340 ml Intake Oral 710 ml 720 ml 240 ml IV Total 713 ml 50 ml 50 ml Output Urine Total 1550 ml 1175 ml 600 ml Drainage Total 50 ml 25 ml 30 ml # Bowel Movements 1 1 Result Diagram: 08/14/17 0651 08/13/17 1355 Objective Remarks GENERAL: This is a well-nourished, well-developed patient, in no apparent distress. CARDIOVASCULAR: Regular rate and regular rhythm without murmurs, gallops, or rubs. RESPIRATORY: Clear to auscultation. Breath sounds equal bilaterally. No wheezes , rales, or rhonchi. GASTROINTESTINAL: Abdomen soft, non-tender, nondistended. Normal, active bowel sounds drain in place. MUSCULOSKELETAL: Extremities without clubbing, cyanosis, or edema. NEURO: Alert & Oriented x4 to person, place, time, situation. Moves all ext x4 Procedures abdominal abscess drainage. Medications and IVs Current Medications Piperacillin Sod/ Tazobactam Sod 50 ml @ 100 mls/hr ONCE ONCE IV Last administered on 08/13/17t 15:05; Start 08/13/17 at 14:00; Stop 08/13/17 at 14:29 ; Status DC Piperacillin Sod/ Tazobactam Sod 50 ml @ 100 mls/hr Q6H IV Last administered on 08/15/17 02:08; Start 08/13/17 at 20:00 Acetaminophen (Tylenol) 650 mg Q4H PRN PO FEVER/PAIN 1-10; Start 08/13/17 at 14 :15 Ondansetron HCl (Zofran Inj) 4 mg Q8HR PRN IV PUSH NAUSEA; Start 08/13/17 at 14 :15 Lidocaine HCl (Xylocaine 1% Inj) 30 ml STK-MED ONCE .ROUTE Last administered on 08/13/17 14:16; Start 08/13/17 at 14:16; Stop 08/13/17 at 14:17; Status DC Lidocaine HCl (Xylocaine 1% Inj) 30 ml STK-MED ONCE .ROUTE Last administered on 08/13/17 15:12; Start 08/13/17 at 15:12; Stop 08/13/17 at 15:13; Status DC Sodium Chloride 1,000 ml @ 70 mls/hr [id number] ONCE IV Last administered on 08/13 17:51; Start 08/13/17 at 15:30; Stop 08/14/17 at 05:47; Status DC Fentanyl Citrate (fentaNYL INJ) 200 mcg STK-MED ONCE .ROUTE Last administered on 08/13/17 16:00; Start 08/13/17 at 15:35; Stop 08/13/17 at 15:36; Status DC Midazolam HCl (Versed Inj) 5 mg STK-MED ONCE .ROUTE Last administered on 16:00; Start 08/13/17 at 15:36; Stop 08/13/17 at 15:37; Status DC Sodium Chloride (NS Inj) 10 ml DAILY@1600 IRRIGATION ; Start 08/14/17 at 16:00 Codeine Sulfate (Codeine Sulfate) 30 mg Q6H PRN PO pain >5 Last administered on 08/15/17 04:36; Start 08/13/17 at 20:00 Morphine Sulfate (Morphine Inj) 2 mg Q3H PRN IM breakthrough pain; Start at 20:00; Stop 08/13/17 at 20:30; Status DC Morphine Sulfate (Morphine Inj) 2 mg Q3H PRN IV breakthrough pain Last administered on 08/14/17 09:48; Start 08/13/17 at 20:45 Gabapentin (Neurontin) 300 mg TID PO Last administered on 08/14/17 09:48; Start 08/13/17 at 22:00; Stop 08/14/17 at 11:26; Status DC Diphenhydramine HCl (Benadryl) 25 mg ONCE ONCE PO ; Start 08/14/17 at 00:45; Stop 08/14/17 at 00:50; Status DC Gabapentin (Neurontin) 600 mg TID PO Last administered on 08/14/17 17:32; Start 08/14/17 at 13:00 Morphine Sulfate (Oramorph Sr) 30 mg BID PO Last administered on 08/14/17 21: 08; Start 08/14/17 at 21:00 Atorvastatin Calcium (Lipitor) 20 mg HS PO Last administered on 08/14/17 21:08 ; Start 08/14/17 at 21:00 Metoprolol Tartrate (Lopressor) 50 mg DAILY PO ; Start 08/15/17 at 09:00 Hydrochlorothiazide (Hydrodiuril) 25 mg DAILY PO ; Start 08/15/17 at 09:00 A/P Assessment and Plan A/P - sepsis due to post-op right inguinal fluid collection s/p fluid drainage by IR- continue with broad spectrum IV antibiotics- will follow the cultures- continue with pain control previously d/w ( his Urologist) who recommended out-patient f/u after abscess drainage. d/w the IR today and patient can be discharged with the drain in place with outpatient f/u. -hypertension/ dyslipidemia; resumed home meds. -TIA; will resume Xarelto upon discharge. -DVT prophylaxis with SCD's- Xarelto will be resumed upon discharge. Discharge Planning dc home within the next 24-48 hrs if stable- pending the fluid culture. Ashutosh Mayers MD Aug 15, 2017 09:08
[2017-08-15] MEDS ORDERED: Vancomycin Consult Pharmacy 1 EA OTHER SCH ×2 (09:15)
[2017-08-15] MEDS: HYDROCHLOROTHIAZIDE 25 MG TAB PO SCH (09:16)
[2017-08-15] MEDS: METOPROLOL TARTRATE 50 MG TAB PO SCH (09:16)
[2017-08-15] MEDS: GABAPENTIN 300 MG CAP PO SCH ×3 (09:16→18:13)
[2017-08-15] MEDS: MORPHINE SULFATE 30 MG CONTROLLED RELEASE TAB PO SCH ×2 (09:17→21:37)
[2017-08-15] MEDS ORDERED: VANCOMYCIN INJ 1,000 MG in SODIUM CHLOR 0.9% 250 ML INJ 250 ML IV SCH (10:00)
[2017-08-15 11:13] VITALS: BP 144/80; PULSE 82; RESP 12; TEMP 98.9; O2SAT 96
[2017-08-15] MEDS: SODIUM CHLORIDE 0.9% 10 ML VIAL IRRIGATION SCH ×2 (13:37→16:00)
--- NOTE | 2017-08-15 15:34 | PD.CONS ---
History of Present Illness Service Infectious disease Consult Requested By Dr Mayers Reason for Consult Evaluate patient with abscess postop Primary Care Physician [facility] Diagnoses: History of Present Illness Patient seen and examined. Records reviewed. Patient is a 72-year-old male, with diagnosed with prostate cancer, underwent prostatectomy around the first week in July, percent to the hospital for further evaluation of a fluid collection that was seen on the CT of the abdomen and pelvis. Patient stated that since after his prostatectomy he has been having daily fevers. Weak after his surgery, he went to his surgeon, and he had a drain on the right side of his abdomen and it was removed during the office visit. He was doing well, and about 2 weeks after the surgery the area where he had the drain started draining purulent fluid. A home health nurse who saw him at that time instructed him to go to the surgeon's office, and he was checked out and was given a prescription for Cipro. That area where he had the drainage had redness along with it, and since he was given the antibiotics the drainage and the redness improved. Patient however continued to have fevers , and on August 12 he presented to the emergency room, because his temperatures went up to 102. He was checked out, had a normal WBC, had an abnormal urinalysis, and he underwent CT of the abdomen and pelvis. If in a prescription for Bactrim. The following day, when the CT report came up, he had findings of fluid collection, so the patient was called back for further evaluation and treatment. Patient's temperatures have improved. CT-guided drainage of the fluid was done, and the fluid was purulent. A drain is currently left in place. His WBC was up to 14.6 on admission, and is down to normal. Blood cultures are negative. The fluid culture is reported as growing MRSA on the preliminary report. Patient is complaining of some terminal dysuria. He denies any respiratory complaints, or any GI complaints. Infectious disease consultation has been requested to evaluate the patient. Review of Systems Constitutional: COMPLAINS OF: Fatigue, Fever, Chills Eyes: DENIES: Eye pain Ears, nose, mouth, throat: DENIES: Nasal discharge, Oral lesions, Throat pain, Ear Pain, Sinus Pain Respiratory: DENIES: Cough, Sputum production, Shortness of breath Cardiovascular: DENIES: Chest pain, Palpitations, Syncope, Dyspnea on Exertion Gastrointestinal: COMPLAINS OF: Abdominal pain, DENIES: Diarrhea, Nausea, Vomiting Genitourinary: COMPLAINS OF: Dysuria, DENIES: Hematuria Musculoskeletal: DENIES: Joint pain, Joint Swelling Integumentary: DENIES: Rash Immunologic/allergic: DENIES: Urticaria Neurologic: DENIES: Headache Psychiatric: DENIES: Hallucinations Past Family Social History Allergies: Coded Allergies: No Known Allergies (Unverified , 08/13/17) Past Medical History Prostate cancer Hypertension Dyslipidemia TIA Atrial fibrillation,? Previous ablation Kidney stone Neuropathy Cataracts Macular degeneration Arthritis Past Surgical History Cataract surgery Bilateral knee replacement Previous reconstructive surgery to the right knee Prostatectomy ? Previous cardiac ablation Reported Medications I attest that I obtained, updated or reviewed the home and current medications. Reported Meds & Active Scripts Active Bactrim DS (Sulfamethoxazole-Trimethoprim) 800-160 Mg Tab 1 Tab PO BID Reported Metoprolol Tartrate 50 Mg Tab 50 Mg PO DAILY Atorvastatin (Atorvastatin Calcium) 20 Mg Tab 20 Mg PO HS Xarelto (Rivaroxaban) 20 Mg Tab 20 Mg PO DAILY Hydrochlorothiazide 25 Mg Tab 25 Mg PO DAILY Xarelto (Rivaroxaban) 20 Mg Tab 20 Mg PO DAILY Gabapentin 300 Mg Cap 600 Mg PO TID Simvastatin 5 Mg Tab Unknown Dose PO DAILY Metoprolol Succinate ER 24 HR (Metoprolol Succinate) 25 Mg Tab Unknown Dose PO DAILY Codeine Sulfate 30 Mg Tab 30 Mg PO Q4HR PRN Morphine ER (Morphine Sulfate) 30 Mg Tab 30 Mg PO BID Active Ordered Medications Tylenol prn Lipitor Codeine prn Neurontin Hydrochlorothiazide Lopressor Morphine prn Oramorph Zofran prn Zosyn Vancomycin Family History Noncontributory Social History Used to be in the [employer] No smoking No alcohol abuse No drugs Physical Exam Vital Signs Vital Signs Date Time Temp Pulse Resp B/P (MAP) Pulse Ox O2 Delivery O2 Flow Rate FiO2 08/15/17 11:13 98.9 82 12 144/80 (101) 96 08/15/17 09:15 Room Air 08/15/17 07:51 98.5 87 16 144/78 (100) 94 08/15/17 05:03 98.5 89 17 134/71 (92) 96 08/15/17 00:32 97.4 75 17 135/67 (89) 98 08/14/17 20:44 99.0 101 17 132/74 (93) 96 08/14/17 19:30 Room Air 08/14/17 16:06 98.5 91 18 150/84 (106) 97 Physical Exam GENERAL: Patient is a well-nourished, well-developed male, awake and alert, not in respiratory distress. SKIN: Warm and dry. No generalized rash, no ecchymoses and no evidence of embolic lesions. HEAD: Atraumatic. Normocephalic. No temporal wasting, or tenderness. EYES: Tobias conjunctiva. No petechia or hemorrhage. Pupils equal, round and reactive to light. Extraocular movements full and intact. No scleral icterus. No injection or drainage. EARS, NOSE AND THROAT: Nose without bleeding or purulent nasal discharge. No sinus tenderness. Mucous membranes pink and moist. No oral lesions noted. NECK: Trachea midline. Supple and not tender, no meningeal signs CARDIOVASCULAR: Regular rate and rhythm. Soft murmur on L chest. RESPIRATORY: Clear to auscultation. Breath sounds equal bilaterally. No rales , wheezing or rhonchi ABDOMEN: Soft, non-tender, nondistended. Bowel sounds present and normoactive. No guarding. No rebound. No organomegaly. Has well healed infraumbilical midline vertical incision, and there is a drain to the R of incision with bloody fluid. EXTREMITIES: No clubbing, cyanosis, or edema.No joint effusion, has good ROM. No calf tenderness. Well perfused and warm. Scars both knees compatible with surgical history NEUROLOGICAL: Awake and alert. Cranial nerves grossly intact. Motor grossly within normal limits. PSYCHIATRIC: Normal affect, calm and cooperative. LINE: No evidence of infection Laboratory Date/Time Source Procedure Growth Status 08/13/17 13:00 Blood Peripheral Aerobic Blood Culture - Preliminary NO GROWTH IN 2 DAYS Resulted 08/13/17 13:00 Blood Peripheral Anaerobic Blood Culture - Preliminary NO GROWTH IN 2 DAYS Resulted 08/13/17 16:25 Fluid Other Gram Stain - Final Resulted 08/13/17 16:25 Body Fluid Culture - Preliminary S. Aureus Mrsa Resulted 08/13/17 16:25 Abscess Abdomen Acid Fast Stain - Final NO ACID FAST BACILLI SEEN Resulted 08/13/17 16:25 Abscess Abdomen Mycobacterial Culture Pending Resulted Result Diagram: 08/14/17 0651 08/13/17 9730 Imaging RADIOLOGY STUDIES/FILMS REVIEWED CT A/P 10/3 - fluid collection in R inguinal /external iliac region about 5.6 cm Assessment and Plan Assessment and Plan IMPRESSION Sepsis due to abscess Postoperative abscess R inguinal/external iliac region, S/P prostatectomy - has drain in place, C/S prelim MRSA - ?bacteremic Prostate CA, S/P prostatectomy Fevers, better Leukocytosis, better RECOMMENDATION Continue Vanco Continue Zosyn for now UA and C/S Consider urology evaluation of fluid collection Follow C/S Follow temps Monitor progress Will determine course of Abx once work-up completed Will follow along with you Thank you for this consultation Discussed Condition With Explained plan to the patient Dr Genaro Nuñez covering this weekend if with any ID issue or question I will check patient on Friday Graciela Grant MD Aug 15, 2017 15:34
[2017-08-15 16:06] VITALS: BP 133/87; PULSE 94; RESP 18; TEMP 99.1; O2SAT 96
[2017-08-15 20:00] VITALS: BP 119/68; PULSE 102; RESP 16; TEMP 98.8; O2SAT 94
[2017-08-15] MEDS: ATORVASTATIN 20 MG TAB PO SCH (21:37)
[2017-08-15] MEDS: VANCOMYCIN INJ 1,250 MG in SODIUM CHLOR 0.9% 250 ML INJ 250 ML IV SCH (21:37)
[2017-08-15 23:17] LABS: BLOOD, URINE NEG (NEG); COMMENT (UR) CULTURE INDICATED; CULTURE IF INDICATED CULTURE INDICATED; GLUCOSE,URINE NEG (NEG); KETONE, URINE NEG (NEG); MUCUS URINE FEW /lpf (OCC); NITRITE,URINE NEG (NEG); PH, URINE 5.5 (5.0-8.5); URINE COLOR YELLOW (YELLW/STRAW)
[2017-08-16] VITALS (7 sets, daily range): BP systolic 106–140; BP diastolic 65–85; PULSE 82–97; RESP 16–20; TEMP 97.6–100.8; O2SAT 94–99
[2017-08-16] MEDS: PIPERACIL-TAZO 3.375 GM PREMIX 50 ML IV SCH ×4 (02:49→20:25)
[2017-08-16] MEDS: METOPROLOL TARTRATE 50 MG TAB PO SCH (09:40)
[2017-08-16] MEDS: GABAPENTIN 300 MG CAP PO SCH ×3 (09:40→17:07)
[2017-08-16] MEDS: HYDROCHLOROTHIAZIDE 25 MG TAB PO SCH (09:40)
[2017-08-16] MEDS: MORPHINE SULFATE 30 MG CONTROLLED RELEASE TAB PO SCH ×2 (09:44→20:25)
--- NOTE | 2017-08-16 10:05 | HHI.PR ---
Subjective Remarks resting comfortably with no distress. afebrile. denies pain. Objective Vitals Vital Signs Date Time Temp Pulse Resp B/P (MAP) Pulse Ox O2 Delivery O2 Flow Rate FiO2 08/16/17 08:00 98.4 87 20 131/74 (93) 94 08/16/17 04:00 99.2 92 16 140/85 (103) 99 08/16/17 00:00 99.6 92 16 106/65 (79) 94 08/15/17 20:00 98.8 102 16 119/68 (85) 94 08/15/17 19:30 Room Air 08/15/17 16:06 99.1 94 18 133/87 (102) 96 08/15/17 11:13 98.9 82 12 144/80 (101) 96 I/O 08/15/17 08/15/17 08/15/17 08/16/17 08/16/17 08/16/17 07:00 15:00 23:00 07:00 15:00 23:00 Intake Total 290 ml 912.5 ml 50 ml Output Total 630 ml 375 ml 15 ml Balance -340 ml 537.5 ml 35 ml Intake Oral 240 ml 600 ml IV Total 50 ml 312.5 ml 50 ml Output Urine Total 600 ml 375 ml Drainage Total 30 ml 15 ml # Voids 3 # Bowel Movements 0 Result Diagram: 08/14/17 0651 08/13/17 1355 Objective Remarks GENERAL: This is a well-nourished, well-developed patient, in no apparent distress. CARDIOVASCULAR: Regular rate and regular rhythm without murmurs, gallops, or rubs. RESPIRATORY: Clear to auscultation. Breath sounds equal bilaterally. No wheezes , rales, or rhonchi. GASTROINTESTINAL: Abdomen soft, non-tender, nondistended. Normal, active bowel sounds drain in place. MUSCULOSKELETAL: Extremities without clubbing, cyanosis, or edema. NEURO: Alert & Oriented x4 to person, place, time, situation. Moves all ext x4 Procedures abdominal abscess drainage. Medications and IVs Current Medications Piperacillin Sod/ Tazobactam Sod 50 ml @ 100 mls/hr ONCE ONCE IV Last administered on 08/13/17t 15:05; Start 08/13/17 at 14:00; Stop 08/13/17 at 14:29 ; Status DC Piperacillin Sod/ Tazobactam Sod 50 ml @ 100 mls/hr Q6H IV Last administered on 08/16/17 09:42; Start 08/13/17 at 20:00 Acetaminophen (Tylenol) 650 mg Q4H PRN PO FEVER/PAIN 1-10; Start 08/13/17 at 14 :15 Ondansetron HCl (Zofran Inj) 4 mg Q8HR PRN IV PUSH NAUSEA; Start 08/13/17 at 14 :15 Lidocaine HCl (Xylocaine 1% Inj) 30 ml STK-MED ONCE .ROUTE Last administered on 08/13/17 14:16; Start 08/13/17 at 14:16; Stop 08/13/17 at 14:17; Status DC Lidocaine HCl (Xylocaine 1% Inj) 30 ml STK-MED ONCE .ROUTE Last administered on 08/13/17 15:12; Start 08/13/17 at 15:12; Stop 08/13/17 at 15:13; Status DC Sodium Chloride 1,000 ml @ 70 mls/hr [id number] ONCE IV Last administered on 08/13 17:51; Start 08/13/17 at 15:30; Stop 08/14/17 at 05:47; Status DC Fentanyl Citrate (fentaNYL INJ) 200 mcg STK-MED ONCE .ROUTE Last administered on 08/13/17 16:00; Start 08/13/17 at 15:35; Stop 08/13/17 at 15:36; Status DC Midazolam HCl (Versed Inj) 5 mg STK-MED ONCE .ROUTE Last administered on 16:00; Start 08/13/17 at 15:36; Stop 08/13/17 at 15:37; Status DC Sodium Chloride (NS Inj) 10 ml DAILY@1600 IRRIGATION ; Start 08/14/17 at 16:00 Codeine Sulfate (Codeine Sulfate) 30 mg Q6H PRN PO pain >5 Last administered on 08/15/17 18:13; Start 08/13/17 at 20:00 Morphine Sulfate (Morphine Inj) 2 mg Q3H PRN IM breakthrough pain; Start at 20:00; Stop 08/13/17 at 20:30; Status DC Morphine Sulfate (Morphine Inj) 2 mg Q3H PRN IV breakthrough pain Last administered on 08/14/17 09:48; Start 08/13/17 at 20:45 Gabapentin (Neurontin) 300 mg TID PO Last administered on 08/14/17 09:48; Start 08/13/17 at 22:00; Stop 08/14/17 at 11:26; Status DC Diphenhydramine HCl (Benadryl) 25 mg ONCE ONCE PO ; Start 08/14/17 at 00:45; Stop 08/14/17 at 00:50; Status DC Gabapentin (Neurontin) 600 mg TID PO Last administered on 08/16/17 09:40; Start 08/14/17 at 13:00 Morphine Sulfate (Oramorph Sr) 30 mg BID PO Last administered on 08/16/17 09: 44; Start 08/14/17 at 21:00 Atorvastatin Calcium (Lipitor) 20 mg HS PO Last administered on 08/15/17 21:37 ; Start 08/14/17 at 21:00 Metoprolol Tartrate (Lopressor) 50 mg DAILY PO Last administered on 08/16/17 09:40; Start 08/15/17 at 09:00 Hydrochlorothiazide (Hydrodiuril) 25 mg DAILY PO Last administered on 09:40; Start 08/15/17 at 09:00 Vancomycin HCl 1000 mg/Sodium Chloride 250 ml @ 250 mls/hr Q24H IV Last administered on 08/15/17 10:05; Start 08/15/17 at 10:00; Stop 08/15/17 at 10:22 ; Status DC Pharmacy Profile Note 0 ml @ 0 mls/hr UNSCH OTHER ; Start 08/15/17 at 09:15; Stop 08/15/17 at 09:16; Status DC Pharmacy Profile Note 0 ml @ 0 mls/hr UNSCH OTHER ; Start 08/15/17 at 09:15 Vancomycin HCl 1250 mg/Sodium Chloride 262.5 ml @ 250 mls/hr Q12H IV Last administered on 08/15/17 21:37; Start 08/15/17 at 22:00 Miscellaneous Information SPECIFIC LAB TO BE ... ONCE ONCE .XX ; Start 08/17 at 09:45; Stop 08/17/17 at 09:46 A/P Problem List: (1) psot-op fluid collection Assessment and Plan A/P - sepsis due to post-op right inguinal fluid collection s/p fluid drainage by IR- continue with broad spectrum IV antibiotics- culture with MRSA- continue with pain control previously d/w ( his Urologist) who recommended out-patient f/u after abscess drainage. ID consult appreciated. -hypertension/ dyslipidemia; resumed home meds. -TIA; will resume Xarelto upon discharge. -DVT prophylaxis with SCD's- Xarelto will be resumed upon discharge. Discharge Planning dc home early next week when ok with ID. Ashutosh Mayers MD Aug 16, 2017 10:05
[2017-08-16] MEDS: VANCOMYCIN INJ 1,250 MG in SODIUM CHLOR 0.9% 250 ML INJ 250 ML IV SCH ×2 (10:23→21:55)
[2017-08-16] MEDS: CODEINE SULFATE 30 MG TAB PO PRN ×2 (10:27→17:06)
[2017-08-16] MEDS: ATORVASTATIN 20 MG TAB PO SCH (20:25)
[2017-08-17] VITALS: BP 119/65; PULSE 81; RESP 18; TEMP 98.1; O2SAT 96
[2017-08-17] MEDS: CODEINE SULFATE 30 MG TAB PO PRN ×3 (01:02→17:04)
[2017-08-17] MEDS: PIPERACIL-TAZO 3.375 GM PREMIX 50 ML IV SCH ×4 (02:00→20:25)
[2017-08-17 04:00] VITALS: BP 112/70; PULSE 83; RESP 18; TEMP 98.1; O2SAT 97
[2017-08-17 08:00] VITALS: BP 145/80; PULSE 91; RESP 18; TEMP 98.9; O2SAT 95
--- NOTE | 2017-08-17 08:31 | HHI.PR ---
Subjective Remarks resting comfortably. minimal abdominal pain. T max 100.8. no other complaints. Objective Vitals Vital Signs Date Time Temp Pulse Resp B/P (MAP) Pulse Ox O2 Delivery O2 Flow Rate FiO2 08/17/17 07:15 Room Air 08/17/17 04:00 98.1 83 18 112/70 (84) 97 08/17/17 00:00 Room Air 08/17/17 00:00 98.1 81 18 119/65 (83) 96 08/16/17 21:55 98.0 08/16/17 20:21 100.8 08/16/17 20:21 97 16 131/69 (89) 95 08/16/17 20:21 Room Air 08/16/17 20:00 Room Air 08/16/17 16:00 98.3 82 18 123/69 (87) 99 08/16/17 12:00 97.6 88 18 125/79 (94) 97 I/O 08/16/17 08/16/17 08/16/17 08/17/17 08/17/17 08/17/17 07:00 15:00 23:00 07:00 15:00 23:00 Intake Total 50 ml 312.5 ml 530 ml Output Total 15 ml 15 ml 1210 ml Balance 35 ml 297.5 ml -680 ml Intake Oral 480 ml IV Total 50 ml 312.5 ml 50 ml Output Urine Total 1200 ml Drainage Total 15 ml 15 ml 10 ml # Voids 3 5 # Bowel Movements 1 0 Result Diagram: 08/14/17 0651 08/13/17 1355 Objective Remarks GENERAL: This is a well-nourished, well-developed patient, in no apparent distress. CARDIOVASCULAR: Regular rate and regular rhythm without murmurs, gallops, or rubs. RESPIRATORY: Clear to auscultation. Breath sounds equal bilaterally. No wheezes , rales, or rhonchi. GASTROINTESTINAL: Abdomen soft, non-tender, nondistended. Normal, active bowel sounds drain in place. MUSCULOSKELETAL: Extremities without clubbing, cyanosis, or edema. NEURO: Alert & Oriented x4 to person, place, time, situation. Moves all ext x4 Procedures abdominal abscess drainage. Medications and IVs Current Medications Piperacillin Sod/ Tazobactam Sod 50 ml @ 100 mls/hr ONCE ONCE IV Last administered on 08/13/17t 15:05; Start 08/13/17 at 14:00; Stop 08/13/17 at 14:29 ; Status DC Piperacillin Sod/ Tazobactam Sod 50 ml @ 100 mls/hr Q6H IV Last administered on 08/17/17 02:00; Start 08/13/17 at 20:00 Acetaminophen (Tylenol) 650 mg Q4H PRN PO FEVER/PAIN 1-10 Last administered on 08/16/17 20:31; Start 08/13/17 at 14:15 Ondansetron HCl (Zofran Inj) 4 mg Q8HR PRN IV PUSH NAUSEA; Start 08/13/17 at 14 :15 Lidocaine HCl (Xylocaine 1% Inj) 30 ml STK-MED ONCE .ROUTE Last administered on 08/13/17 14:16; Start 08/13/17 at 14:16; Stop 08/13/17 at 14:17; Status DC Lidocaine HCl (Xylocaine 1% Inj) 30 ml STK-MED ONCE .ROUTE Last administered on 08/13/17 15:12; Start 08/13/17 at 15:12; Stop 08/13/17 at 15:13; Status DC Sodium Chloride 1,000 ml @ 70 mls/hr [id number] ONCE IV Last administered on 08/13 17:51; Start 08/13/17 at 15:30; Stop 08/14/17 at 05:47; Status DC Fentanyl Citrate (fentaNYL INJ) 200 mcg STK-MED ONCE .ROUTE Last administered on 08/13/17 16:00; Start 08/13/17 at 15:35; Stop 08/13/17 at 15:36; Status DC Midazolam HCl (Versed Inj) 5 mg STK-MED ONCE .ROUTE Last administered on 16:00; Start 08/13/17 at 15:36; Stop 08/13/17 at 15:37; Status DC Sodium Chloride (NS Inj) 10 ml DAILY@1600 IRRIGATION ; Start 08/14/17 at 16:00 Codeine Sulfate (Codeine Sulfate) 30 mg Q6H PRN PO pain >5 Last administered on 08/17/17 01:02; Start 08/13/17 at 20:00 Morphine Sulfate (Morphine Inj) 2 mg Q3H PRN IM breakthrough pain; Start at 20:00; Stop 08/13/17 at 20:30; Status DC Morphine Sulfate (Morphine Inj) 2 mg Q3H PRN IV breakthrough pain Last administered on 08/14/17 09:48; Start 08/13/17 at 20:45 Gabapentin (Neurontin) 300 mg TID PO Last administered on 08/14/17 09:48; Start 08/13/17 at 22:00; Stop 08/14/17 at 11:26; Status DC Diphenhydramine HCl (Benadryl) 25 mg ONCE ONCE PO ; Start 08/14/17 at 00:45; Stop 08/14/17 at 00:50; Status DC Gabapentin (Neurontin) 600 mg TID PO Last administered on 08/16/17 17:07; Start 08/14/17 at 13:00 Morphine Sulfate (Oramorph Sr) 30 mg BID PO Last administered on 08/16/17 20: 25; Start 08/14/17 at 21:00 Atorvastatin Calcium (Lipitor) 20 mg HS PO Last administered on 08/16/17 20:25 ; Start 08/14/17 at 21:00 Metoprolol Tartrate (Lopressor) 50 mg DAILY PO Last administered on 08/16/17 09:40; Start 08/15/17 at 09:00 Hydrochlorothiazide (Hydrodiuril) 25 mg DAILY PO Last administered on 09:40; Start 08/15/17 at 09:00 Vancomycin HCl 1000 mg/Sodium Chloride 250 ml @ 250 mls/hr Q24H IV Last administered on 08/15/17 10:05; Start 08/15/17 at 10:00; Stop 08/15/17 at 10:22 ; Status DC Pharmacy Profile Note 0 ml @ 0 mls/hr UNSCH OTHER ; Start 08/15/17 at 09:15; Stop 08/15/17 at 09:16; Status DC Pharmacy Profile Note 0 ml @ 0 mls/hr UNSCH OTHER ; Start 08/15/17 at 09:15 Vancomycin HCl 1250 mg/Sodium Chloride 262.5 ml @ 250 mls/hr Q12H IV Last administered on 08/16/17 21:55; Start 08/15/17 at 22:00 Miscellaneous Information SPECIFIC LAB TO BE ... ONCE ONCE .XX ; Start 08/17 at 09:45; Stop 08/17/17 at 09:46 A/P Problem List: (1) psot-op fluid collection Assessment and Plan A/P - sepsis due to post-op right inguinal fluid collection s/p fluid drainage by IR- continue with broad spectrum IV antibiotics- culture with MRSA- continue with pain control previously d/w ( his Urologist) who recommended out-patient f/u after abscess drainage. ID consult appreciated. -hypertension/ dyslipidemia; resumed home meds. -TIA; will resume Xarelto upon discharge. -DVT prophylaxis with SCD's- Xarelto will be resumed upon discharge. Discharge Planning dc home early this week when ok with ID. Ashutosh Mayers MD Aug 17, 2017 08:31
[2017-08-17] MEDS: GABAPENTIN 300 MG CAP PO SCH ×3 (09:15→17:02)
[2017-08-17] MEDS: METOPROLOL TARTRATE 50 MG TAB PO SCH (09:15)
[2017-08-17] MEDS: HYDROCHLOROTHIAZIDE 25 MG TAB PO SCH (09:16)
[2017-08-17] MEDS: MORPHINE SULFATE 30 MG CONTROLLED RELEASE TAB PO SCH ×2 (09:16→20:24)
[2017-08-17] MEDS ORDERED: PHARMACY ORDERED LAB ONE (09:45)
[2017-08-17] MEDS: VANCOMYCIN INJ 1,250 MG in SODIUM CHLOR 0.9% 250 ML INJ 250 ML IV SCH ×2 (10:13→22:00)
[2017-08-17 12:00] VITALS: BP 124/70; PULSE 66; RESP 18; TEMP 97.3; O2SAT 96
[2017-08-17 16:00] VITALS: BP 110/68; PULSE 95; RESP 18; TEMP 98.3; O2SAT 94
[2017-08-17] MEDS: SODIUM CHLORIDE 0.9% 10 ML VIAL IRRIGATION SCH (16:00)
[2017-08-17 20:00] VITALS: BP 135/71; PULSE 94; RESP 16; TEMP 98.7; O2SAT 95
[2017-08-17] MEDS: ATORVASTATIN 20 MG TAB PO SCH (20:24)
[2017-08-18] VITALS: BP 112/64; PULSE 87; RESP 16; TEMP 99.4; O2SAT 96
[2017-08-18] MEDS: PIPERACIL-TAZO 3.375 GM PREMIX 50 ML IV SCH ×2 (01:59→08:43)
[2017-08-18] MEDS: CODEINE SULFATE 30 MG TAB PO PRN (02:00)
[2017-08-18 04:00] VITALS: BP 127/79; PULSE 85; RESP 18; TEMP 99; O2SAT 95
[2017-08-18 08:06] VITALS: BP 127/72; PULSE 98; RESP 18; TEMP 98.1; O2SAT 96
[2017-08-18] MEDS: VANCOMYCIN INJ 1,250 MG in SODIUM CHLOR 0.9% 250 ML INJ 250 ML IV SCH ×2 (08:44→20:21)
[2017-08-18] MEDS: MORPHINE SULFATE 30 MG CONTROLLED RELEASE TAB PO SCH ×2 (08:44→20:21)
[2017-08-18] MEDS: HYDROCHLOROTHIAZIDE 25 MG TAB PO SCH (08:44)
[2017-08-18] MEDS: GABAPENTIN 300 MG CAP PO SCH ×3 (08:44→18:11)
[2017-08-18] MEDS: METOPROLOL TARTRATE 50 MG TAB PO SCH (08:44)
--- NOTE | 2017-08-18 08:54 | HHI.PR ---
Subjective Remarks resting comfortably with no distress. afebrile. pain is controlled. no new complaints. Objective Vitals Vital Signs Date Time Temp Pulse Resp B/P (MAP) Pulse Ox O2 Delivery O2 Flow Rate FiO2 08/18/17 08:06 98.1 98 18 127/72 (90) 96 08/18/17 04:00 99.0 85 18 127/79 (95) 95 08/18/17 00:00 99.4 87 16 112/64 (80) 96 08/17/17 20:33 Room Air 08/17/17 20:00 98.7 94 16 135/71 (92) 95 08/17/17 16:00 98.3 95 18 110/68 (82) 94 08/17/17 12:00 97.3 66 18 124/70 (88) 96 I/O 08/17/17 08/17/17 08/17/17 08/18/17 08/18/17 08/18/17 07:00 15:00 23:00 07:00 15:00 23:00 Intake Total 530 ml 480 ml Output Total 1210 ml 810 ml Balance -680 ml -330 ml Intake Oral 480 ml 480 ml IV Total 50 ml Output Urine Total 1200 ml 800 ml Drainage Total 10 ml 10 ml # Voids 2 # Bowel Movements 0 1 Result Diagram: 08/14/17 0651 08/17/17 0710 Objective Remarks GENERAL: This is a well-nourished, well-developed patient, in no apparent distress. CARDIOVASCULAR: Regular rate and regular rhythm without murmurs, gallops, or rubs. RESPIRATORY: Clear to auscultation. Breath sounds equal bilaterally. No wheezes , rales, or rhonchi. GASTROINTESTINAL: Abdomen soft, non-tender, nondistended. Normal, active bowel sounds drain in place. MUSCULOSKELETAL: Extremities without clubbing, cyanosis, or edema. NEURO: Alert & Oriented x4 to person, place, time, situation. Moves all ext x4 Procedures abdominal abscess drainage. Medications and IVs Current Medications Piperacillin Sod/ Tazobactam Sod 50 ml @ 100 mls/hr ONCE ONCE IV Last administered on 08/13/17t 15:05; Start 08/13/17 at 14:00; Stop 08/13/17 at 14:29 ; Status DC Piperacillin Sod/ Tazobactam Sod 50 ml @ 100 mls/hr Q6H IV Last administered on 08/18/17 01:59; Start 08/13/17 at 20:00 Acetaminophen (Tylenol) 650 mg Q4H PRN PO FEVER/PAIN 1-10 Last administered on 08/16/17 20:31; Start 08/13/17 at 14:15 Ondansetron HCl (Zofran Inj) 4 mg Q8HR PRN IV PUSH NAUSEA; Start 08/13/17 at 14 :15 Lidocaine HCl (Xylocaine 1% Inj) 30 ml STK-MED ONCE .ROUTE Last administered on 08/13/17 14:16; Start 08/13/17 at 14:16; Stop 08/13/17 at 14:17; Status DC Lidocaine HCl (Xylocaine 1% Inj) 30 ml STK-MED ONCE .ROUTE Last administered on 08/13/17 15:12; Start 08/13/17 at 15:12; Stop 08/13/17 at 15:13; Status DC Sodium Chloride 1,000 ml @ 70 mls/hr [id number] ONCE IV Last administered on 08/13 17:51; Start 08/13/17 at 15:30; Stop 08/14/17 at 05:47; Status DC Fentanyl Citrate (fentaNYL INJ) 200 mcg STK-MED ONCE .ROUTE Last administered on 08/13/17 16:00; Start 08/13/17 at 15:35; Stop 08/13/17 at 15:36; Status DC Midazolam HCl (Versed Inj) 5 mg STK-MED ONCE .ROUTE Last administered on 16:00; Start 08/13/17 at 15:36; Stop 08/13/17 at 15:37; Status DC Sodium Chloride (NS Inj) 10 ml DAILY@1600 IRRIGATION Last administered on 16:00; Start 08/14/17 at 16:00 Codeine Sulfate (Codeine Sulfate) 30 mg Q6H PRN PO pain >5 Last administered on 08/18/17 02:00; Start 08/13/17 at 20:00 Morphine Sulfate (Morphine Inj) 2 mg Q3H PRN IM breakthrough pain; Start at 20:00; Stop 08/13/17 at 20:30; Status DC Morphine Sulfate (Morphine Inj) 2 mg Q3H PRN IV breakthrough pain Last administered on 08/14/17 09:48; Start 08/13/17 at 20:45 Gabapentin (Neurontin) 300 mg TID PO Last administered on 08/14/17 09:48; Start 08/13/17 at 22:00; Stop 08/14/17 at 11:26; Status DC Diphenhydramine HCl (Benadryl) 25 mg ONCE ONCE PO ; Start 08/14/17 at 00:45; Stop 08/14/17 at 00:50; Status DC Gabapentin (Neurontin) 600 mg TID PO Last administered on 08/17/17 17:02; Start 08/14/17 at 13:00 Morphine Sulfate (Oramorph Sr) 30 mg BID PO Last administered on 08/17/17 20: 24; Start 08/14/17 at 21:00 Atorvastatin Calcium (Lipitor) 20 mg HS PO Last administered on 08/17/17 20:24 ; Start 08/14/17 at 21:00 Metoprolol Tartrate (Lopressor) 50 mg DAILY PO Last administered on 08/17/17 09:15; Start 08/15/17 at 09:00 Hydrochlorothiazide (Hydrodiuril) 25 mg DAILY PO Last administered on 09:16; Start 08/15/17 at 09:00 Vancomycin HCl 1000 mg/Sodium Chloride 250 ml @ 250 mls/hr Q24H IV Last administered on 08/15/17 10:05; Start 08/15/17 at 10:00; Stop 08/15/17 at 10:22 ; Status DC Pharmacy Profile Note 0 ml @ 0 mls/hr UNSCH OTHER ; Start 08/15/17 at 09:15; Stop 08/15/17 at 09:16; Status DC Pharmacy Profile Note 0 ml @ 0 mls/hr UNSCH OTHER ; Start 08/15/17 at 09:15 Vancomycin HCl 1250 mg/Sodium Chloride 262.5 ml @ 250 mls/hr Q12H IV Last administered on 08/17/17 22:00; Start 08/15/17 at 22:00 Miscellaneous Information SPECIFIC LAB TO BE ALIYA... ONCE ONCE .XX Last administered on 08/17/17 09:45; Start 08/17/17 at 09:45; Stop 08/17/17 at 09:46 ; Status DC A/P Problem List: (1) psot-op fluid collection Assessment and Plan A/P - sepsis due to post-op right inguinal fluid collection s/p fluid drainage by IR- continue with broad spectrum IV antibiotics- culture with MRSA- continue with pain control previously d/w ( his Urologist) who recommended out-patient f/u after abscess drainage. ID consult appreciated. d/w the IR today; will repeat the CT of the abdomen tomorrow - for possible drain removal. -hypertension/ dyslipidemia; resumed home meds. -TIA; will resume Xarelto upon discharge. -DVT prophylaxis with SCD's- Xarelto will be resumed upon discharge. Discharge Planning possible dc home tomorrow- pending the repeated CT abdomen. d/w the IR. Ashutosh Mayers MD Aug 18, 2017 08:54
[2017-08-18 09:20] LABS: BICARBONATE 28.3 MEQ/L (21.0-32.0); POTASSIUM 3.7 MEQ/L (3.5-5.1)
[2017-08-18 12:08] VITALS: BP 108/65; PULSE 80; RESP 18; TEMP 98.4; O2SAT 96
--- NOTE | 2017-08-18 13:10 | HHI.IDPN ---
Subjective Subjective Remarks Patient is a 72-year-old male, with diagnosed with prostate cancer, underwent prostatectomy around the first week in July, percent to the hospital for further evaluation of a fluid collection that was seen on the CT of the abdomen and pelvis. Patient stated that since after his prostatectomy he has been having daily fevers. Weak after his surgery, he went to his surgeon, and he had a drain on the right side of his abdomen and it was removed during the office visit. He was doing well, and about 2 weeks after the surgery the area where he had the drain started draining purulent fluid. A home health nurse who saw him at that time instructed him to go to the surgeon's office, and he was checked out and was given a prescription for Cipro. That area where he had the drainage had redness along with it, and since he was given the antibiotics the drainage and the redness improved. Patient however continued to have fevers , and on August 12 he presented to the emergency room, because his temperatures went up to 102. He was checked out, had a normal WBC, had an abnormal urinalysis, and he underwent CT of the abdomen and pelvis. If in a prescription for Bactrim. The following day, when the CT report came up, he had findings of fluid collection, so the patient was called back for further evaluation and treatment. Patient's temperatures have improved. CT-guided drainage of the fluid was done, and the fluid was purulent. A drain is currently left in place. His WBC was up to 14.6 on admission, and is down to normal. Blood cultures are negative. The fluid culture is reported as growing MRSA on the preliminary report. Patient is complaining of some terminal dysuria. He denies any respiratory complaints, or any GI complaints. Infectious disease consultation has been requested to evaluate the patient. Notes reviewed D/W RN They are irrigating the cath 10 cc q6h Output has been low C/S with MRSA BC negative Temps low grade this weekend Still with terminal dysuria UC negative Antibiotics Vanco Zosyn Lines PIV Past Medical History Prostate cancer Hypertension Dyslipidemia TIA Atrial fibrillation,? Previous ablation Kidney stone Neuropathy Cataracts Macular degeneration Arthritis Past Surgical History Cataract surgery Bilateral knee replacement Previous reconstructive surgery to the right knee Prostatectomy ? Previous cardiac ablation Allergies: Coded Allergies: No Known Allergies (Unverified , 08/13/17) Objective . Vital Signs Date Time Temp Pulse Resp B/P (MAP) Pulse Ox O2 Delivery O2 Flow Rate FiO2 08/18/17 12:08 98.4 80 18 108/65 (79) 96 08/18/17 08:50 Room Air 08/18/17 08:06 98.1 98 18 127/72 (90) 96 08/18/17 04:00 99.0 85 18 127/79 (95) 95 08/18/17 00:00 99.4 87 16 112/64 (80) 96 08/17/17 20:33 Room Air 08/17/17 20:00 98.7 94 16 135/71 (92) 95 08/17/17 16:00 98.3 95 18 110/68 (82) 94 08/18/17 08/18/17 08/19/17 15:00 23:00 07:00 Intake Total 50 ml Balance 50 ml IV Total 50 ml . Laboratory Tests Test 08/17/17 07:10 08/18/17 07:00 Creatinine 0.88 MG/DL 0.89 MG/DL Estimat Glomerular Filtration Rate 85 ML/MIN 84 ML/MIN Blood Urea Nitrogen 11 MG/DL Random Glucose 80 MG/DL Calcium Level 8.8 MG/DL Sodium Level 138 MEQ/L Potassium Level 3.7 MEQ/L Chloride Level 101 MEQ/L Carbon Dioxide Level 28.3 MEQ/L Anion Gap 9 MEQ/L Microbiology Date/Time Source Procedure Growth Status 08/15/17 22:30 Urine Clean Catch Urine Culture - Final NO GROWTH IN 48 HOURS. Complete Physical Exam GENERAL: awake and alert, not in respiratory distress. SKIN: Warm and dry. No generalized rash, no ecchymoses and no evidence of embolic lesions. HEAD: Atraumatic. Normocephalic. No temporal wasting, or tenderness. EYES: [place] conjunctiva. No petechia or hemorrhage. Pupils equal, round and reactive to light. Extraocular movements full and intact. No scleral icterus EARS, NOSE AND THROAT: Nose without bleeding or purulent nasal discharge. No sinus tenderness. Mucous membranes pink and moist. No oral lesions noted. NECK: Trachea midline. Supple and not tender, no meningeal signs CARDIOVASCULAR: Regular rate and rhythm. Soft murmur on L chest. RESPIRATORY: Clear to auscultation. Breath sounds equal bilaterally. No rales , wheezing or rhonchi ABDOMEN: Soft, non-tender, nondistended. Bowel sounds present and normoactive. No guarding. No rebound. No organomegaly. Has well healed infraumbilical midline vertical incision, and there is a drain to the R of incision with bloody fluid. EXTREMITIES: No clubbing, cyanosis, or edema. No calf tenderness. Well perfused and warm. Scars both knees compatible with surgical history NEUROLOGICAL: Awake and alert. Cranial nerves grossly intact. Motor grossly within normal limits. PSYCHIATRIC: Normal affect, calm and cooperative. LINE: No evidence of infection Assessment & Plan Remarks IMPRESSION Sepsis due to abscess - temps better - BC negative Postoperative abscess R inguinal/external iliac region, S/P prostatectomy - has drain in place, C/S prelim MRSA - ?bacteremic Prostate CA, S/P prostatectomy Fevers, better Leukocytosis, better RECOMMENDATION Continue Vanco Stop Zosyn IR to determine when the drain will be pulled Repeat CT tomorrow if output remains low and, then they will decide if it can be pulled Patient is clinically stable for D/C on oral Abx - will use Bactrim DS 1 po BID x 21 days Monitor progress D/W RN D/W Graciela Campos MD Aug 18, 2017 13:09
[2017-08-18] MEDS: SODIUM CHLORIDE 0.9% 10 ML VIAL IRRIGATION SCH (15:26)
[2017-08-18 16:06] VITALS: BP 131/76; PULSE 90; RESP 19; TEMP 98.5; O2SAT 96
--- NOTE | 2017-08-18 18:16 | RADRPT ---
EXAM DATE/TIME: 08/13/2017 15:57 [facility] COMPARISON: No previous studies available for comparison. INDICATIONS : Right lower quadrant fluid collection 1 month post op prostatectomy SEDATION TIME: 30 minutes MEDICATION(S): 1.) 3 mg midazolam (Versed) IV 2.) 150 mcg fentanyl (Sublimaze) IV DEVICE(S): 1.) 8 Fr [place] Total volume of 20 cc of cloudy, green fluid was removed. Fluid was sent for laboratory ordered studies. MEDICAL HISTORY : Hypertension. Prostate cancer SURGICAL HISTORY : Prostatectomy. ENCOUNTER: Initial ACUITY: 1 week PAIN SCORE: 7/10 LOCATION: Right lower quadrant PROCEDURE: PROCEDURE : 1. CT guided drainage of the pelvic abscess 2. Conscious sedation with continuous EKG and oximetry monitoring. The risks, benefits and alternatives to the procedure were explained and verbal and written consent w as obtained. Using automated exposure control and adjustment of the mA and/or kV according to patient size, radiation dose was kept as low as reasonably achievable to obtain optimal diagnostic quality i mages. The site was prepped in sterile fashion. Full sterile technique was used, including cap, ma sk, sterile gloves and gown and a large sterile sheet. Hand hygiene and 2% chlorhexidine and/or beta dine/alcohol prep was utilized per protocol for cutaneous antisepsis. The skin and subcutaneous tiss ues were infiltrated with local anesthetic solution. DICOM format image data is available electronic ally for review and comparison. Using CT guidance the prescribed site was localized. Drainage was performed using the prescribed cat heter The patient tolerated the procedure well and there were no complications. Conscious sedation was per formed with the prescribed dosages and duration as above in the presence of an independent trained ra diology nurse to assist in the monitoring of the patient. EKG and oximetry remained stable throughou t the procedure. The patient tolerated the procedure well and there were no complications. The patient was sent to pos t anesthesia recovery in stable condition. CONCLUSION: Uncomplicated CT guided drainage. Herminio Nielson MD on August 18, 2017 at 18:10 Board Certified Radiologist. This report was verified electronically.
[2017-08-18] MEDS ORDERED: HYDROCORTISONE 0.5% CREAM 30 GM TOPICAL PRN (18:45)
[2017-08-18 20:00] VITALS: BP 147/67; PULSE 114; RESP 20; TEMP 98.4; O2SAT 96
[2017-08-18] MEDS: ATORVASTATIN 20 MG TAB PO SCH (20:21)
[2017-08-19] VITALS: BP 131/69; PULSE 85; RESP 20; TEMP 98; O2SAT 94
[2017-08-19 04:00] VITALS: BP 142/62; PULSE 94; RESP 22; TEMP 98.2; O2SAT 98
[2017-08-19 08:06] VITALS: BP 147/88; PULSE 104; RESP 19; TEMP 98.8; O2SAT 96
--- NOTE | 2017-08-19 08:52 | HHI.PR ---
Subjective Remarks in no distress. denies pain. no fever. no new complaints. Objective Vitals Vital Signs Date Time Temp Pulse Resp B/P (MAP) Pulse Ox O2 Delivery O2 Flow Rate FiO2 08/19/17 08:06 98.8 104 19 147/88 (107) 96 08/19/17 04:00 98.2 94 22 142/62 (88) 98 08/19/17 02:51 Room Air 08/19/17 00:00 98.0 85 20 131/69 (89) 94 08/18/17 20:00 98.4 114 20 147/67 (93) 96 08/18/17 16:06 98.5 90 19 131/76 (94) 96 08/18/17 12:08 98.4 80 18 108/65 (79) 96 I/O 08/18/17 08/18/17 08/18/17 08/19/17 08/19/17 08/19/17 07:00 15:00 23:00 07:00 15:00 23:00 Intake Total 480 ml 300 ml 982.5 ml 640 ml Output Total 810 ml 700 ml 860 ml Balance -330 ml 300 ml 282.5 ml -220 ml Intake Oral 480 ml 720 ml 640 ml IV Total 300 ml 262.5 ml Output Urine Total 800 ml 700 ml 850 ml Drainage Total 10 ml 0 ml 10 ml # Voids 2 # Bowel Movements 1 0 2 Result Diagram: 08/18/17 0700 Imaging Last Impressions Abscess Drainage CT 08/13/17 0000 Signed Impressions: Service Date/Time: Sunday, August 13, 2017 15:57 - CONCLUSION: Uncomplicated CT guided drainage. Herminio Nielson MD Objective Remarks GENERAL: This is a well-nourished, well-developed patient, in no apparent distress. CARDIOVASCULAR: Regular rate and regular rhythm without murmurs, gallops, or rubs. RESPIRATORY: Clear to auscultation. Breath sounds equal bilaterally. No wheezes , rales, or rhonchi. GASTROINTESTINAL: Abdomen soft, non-tender, nondistended. Normal, active bowel sounds drain in place. MUSCULOSKELETAL: Extremities without clubbing, cyanosis, or edema. NEURO: Alert & Oriented x4 to person, place, time, situation. Moves all ext x4 Procedures abdominal abscess drainage. Medications and IVs Current Medications Piperacillin Sod/ Tazobactam Sod 50 ml @ 100 mls/hr ONCE ONCE IV Last administered on 08/13/17 15:05; Start 08/13/17 at 14:00; Stop 08/13/17 at 14:29 ; Status DC Piperacillin Sod/ Tazobactam Sod 50 ml @ 100 mls/hr Q6H IV Last administered on 08/18/17 08:43; Start 08/13/17 at 20:00; Stop 08/18/17 at 12:58; Status DC Acetaminophen (Tylenol) 650 mg Q4H PRN PO FEVER/PAIN 1-10 Last administered on 08/16/17 20:31; Start 08/13/17 at 14:15 Ondansetron HCl (Zofran Inj) 4 mg Q8HR PRN IV PUSH NAUSEA; Start 08/13/17 at 14 :15 Lidocaine HCl (Xylocaine 1% Inj) 30 ml STK-MED ONCE .ROUTE Last administered on 08/13/17 14:16; Start 08/13/17 at 14:16; Stop 08/13/17 at 14:17; Status DC Lidocaine HCl (Xylocaine 1% Inj) 30 ml STK-MED ONCE .ROUTE Last administered on 08/13/17 15:12; Start 08/13/17 at 15:12; Stop 08/13/17 at 15:13; Status DC Sodium Chloride 1,000 ml @ 70 mls/hr [id number] ONCE IV Last administered on 08/13 17:51; Start 08/13/17 at 15:30; Stop 08/14/17 at 05:47; Status DC Fentanyl Citrate (fentaNYL INJ) 200 mcg STK-MED ONCE .ROUTE Last administered on 08/13/17 16:00; Start 08/13/17 at 15:35; Stop 08/13/17 at 15:36; Status DC Midazolam HCl (Versed Inj) 5 mg STK-MED ONCE .ROUTE Last administered on 16:00; Start 08/13/17 at 15:36; Stop 08/13/17 at 15:37; Status DC Sodium Chloride (NS Inj) 10 ml DAILY@1600 IRRIGATION Last administered on 15:26; Start 08/14/17 at 16:00 Codeine Sulfate (Codeine Sulfate) 30 mg Q6H PRN PO pain >5 Last administered on 08/18/17 02:00; Start 08/13/17 at 20:00 Morphine Sulfate (Morphine Inj) 2 mg Q3H PRN IM breakthrough pain; Start at 20:00; Stop 08/13/17 at 20:30; Status DC Morphine Sulfate (Morphine Inj) 2 mg Q3H PRN IV breakthrough pain Last administered on 08/14/17 09:48; Start 08/13/17 at 20:45 Gabapentin (Neurontin) 300 mg TID PO Last administered on 08/14/17 09:48; Start 08/13/17 at 22:00; Stop 08/14/17 at 11:26; Status DC Diphenhydramine HCl (Benadryl) 25 mg ONCE ONCE PO ; Start 08/14/17 at 00:45; Stop 08/14/17 at 00:50; Status DC Gabapentin (Neurontin) 600 mg TID PO Last administered on 08/18/17 18:11; Start 08/14/17 at 13:00 Morphine Sulfate (Oramorph Sr) 30 mg BID PO Last administered on 08/18/17 20: 21; Start 08/14/17 at 21:00 Atorvastatin Calcium (Lipitor) 20 mg HS PO Last administered on 08/18/17 20:21 ; Start 08/14/17 at 21:00 Metoprolol Tartrate (Lopressor) 50 mg DAILY PO Last administered on 08/18/17 08:44; Start 08/15/17 at 09:00 Hydrochlorothiazide (Hydrodiuril) 25 mg DAILY PO Last administered on 08:44; Start 08/15/17 at 09:00 Vancomycin HCl 1000 mg/Sodium Chloride 250 ml @ 250 mls/hr Q24H IV Last administered on 08/15/17 10:05; Start 08/15/17 at 10:00; Stop 08/15/17 at 10:22 ; Status DC Pharmacy Profile Note 0 ml @ 0 mls/hr UNSCH OTHER ; Start 08/15/17 at 09:15; Stop 08/15/17 at 09:16; Status DC Pharmacy Profile Note 0 ml @ 0 mls/hr UNSCH OTHER ; Start 08/15/17 at 09:15 Vancomycin HCl 1250 mg/Sodium Chloride 262.5 ml @ 250 mls/hr Q12H IV Last administered on 08/18/17 20:21; Start 08/15/17 at 22:00 Miscellaneous Information SPECIFIC LAB TO BE ... ONCE ONCE .XX Last administered on 08/17/17 09:45; Start 08/17/17 at 09:45; Stop 08/17/17 at 09:46 ; Status DC Hydrocortisone (Corticaine 0.5% Cream) 1 applic Q12HR PRN TOPICAL RASH; Start 08/18/17 at 18:45 A/P Assessment and Plan A/P - sepsis due to post-op right inguinal fluid collection s/p fluid drainage by IR- continue with broad spectrum IV antibiotics- culture with MRSA- continue with pain control previously d/w ( his Urologist) who recommended out-patient f/u after abscess drainage. ID f/u appreciated; plan for po bactrim for 21 days- previously d/w the IR ; will repeat the CT of the abdomen today - for possible drain removal. -hypertension/ dyslipidemia; resumed home meds. -TIA; will resume Xarelto upon discharge. -DVT prophylaxis with SCD's- Xarelto will be resumed upon discharge. Discharge Planning possible dc home today- pending the repeated CT abdomen. f/u; pcp and urology upon discharge. see med list. d/w the patient. d/w radiology. time spent 35 min. Ashutosh Mayers MD Aug 19, 2017 08:52
[2017-08-19] MEDS ORDERED: BACT800T5 PO (08:54)
--- NOTE | 2017-08-19 08:59 | HHI.DS ---
Discharge Summary Admission Date Aug 13, 2017 at 14:46 Discharge Date: Aug 19, 2017 Admitting Diagnosis post-op fluid collection (1) psot-op fluid collection Diagnosis: Principal Procedures abdominal abscess drainage. Brief History - From Admission patient is a 72 y/o male with history of prostate cancer- s/p prostatectomy about a month ago presented to ER with right lower abdominal pain. he says that he noticed some erythema and pain to the right lower abdomen about two weeks ago. he was seen by his urologist and was given a prescription for cipro which he took for five days. however he was feeling weak, with no appetite and on and off fever and chills. he had a fever of 102 yesterday for which he was advised to go to ER by his [facility] nurse. he had a CT of the abdomen in ER and was sent home with a prescription of Bactrim with the impression of UTI. however he says that he was called today to come back to ER since he was found to have a fluid collection.at the time of my evaluation he was fairly comfortable with mild pain. had a low grade fever at the time of presentation. CBC/BMP: 08/18/17 0700 Significant Findings Laboratory Tests Test 08/17/17 07:10 08/17/17 09:30 08/18/17 07:00 08/19/17 06:00 Estimat Glomerular Filtration Rate 85 ML/MIN (>89) 84 ML/MIN (>89) Vancomycin Level Trough 13.3 MCG/ML (5.0-10.0) Imaging Last Impressions Abscess Drainage CT 08/13/17 0000 Signed Impressions: Service Date/Time: Sunday, August 13, 2017 15:57 - CONCLUSION: Uncomplicated CT guided drainage. Herminio Nielson MD PE at Discharge GENERAL: This is a well-nourished, well-developed patient, in no apparent distress. CARDIOVASCULAR: Regular rate and regular rhythm without murmurs, gallops, or rubs. RESPIRATORY: Clear to auscultation. Breath sounds equal bilaterally. No wheezes , rales, or rhonchi. GASTROINTESTINAL: Abdomen soft, non-tender, nondistended. Normal, active bowel sounds drain in place. MUSCULOSKELETAL: Extremities without clubbing, cyanosis, or edema. NEURO: Alert & Oriented x4 to person, place, time, situation. Moves all ext x4 Hospital Course - sepsis due to post-op right inguinal fluid collection s/p fluid drainage by IR- continue with broad spectrum IV antibiotics- culture with MRSA- continue with pain control previously d/w ( his Urologist) who recommended out-patient f/u after abscess drainage. ID f/u appreciated; plan for po bactrim for 21 days- previously d/w the IR ; will repeat the CT of the abdomen today - for possible drain removal. -hypertension/ dyslipidemia; resumed home meds. -TIA; will resume Xarelto upon discharge. -DVT prophylaxis with SCD's- Xarelto will be resumed upon discharge. Pt Condition on Discharge: Good Discharge Disposition: Disch w/ Home Health Serv Discharge Time: > 30 minutes Discharge Instructions DIET: Follow Instructions for: Heart Healthy Diet Activities you can perform: Regular-No Restrictions Follow up Referrals: PCP Follow-up Urology Continued Medications: Atorvastatin (Atorvastatin) 20 Mg Tab 20 MG PO HS for Cholesterol Management, #30 TAB 0 Refills Codeine Sulfate (Codeine Sulfate) 30 Mg Tab 30 MG PO Q4HR PRN for PAIN, TAB 0 Refills Gabapentin (Gabapentin) 300 Mg Cap 600 MG PO TID, #90 CAP 0 Refills Hydrochlorothiazide (Hydrochlorothiazide) 25 Mg Tab 25 MG PO DAILY, #30 TAB 0 Refills Metoprolol Tartrate (Metoprolol Tartrate) 50 Mg Tab 50 MG PO DAILY, #30 TAB 0 Refills Morphine ER (Morphine ER) 30 Mg Tab 30 MG PO BID for Pain Management, TAB 0 Refills Rivaroxaban (Xarelto) 20 Mg Tab 20 MG PO DAILY for Blood Clot Prevention, TAB 0 Refills Sulfamethoxazole-Trimethoprim (Bactrim DS) 800-160 Mg Tab 1 TAB PO BID for Infection for 21 Days, #42 TAB 0 Refills (This prescription has been renewed) Discontinued Medications: Metoprolol Succinate ER 24 HR (Metoprolol Succinate ER 24 HR) 25 Mg Tab Unknown Dose PO DAILY, #30 TAB 0 Refills Rivaroxaban (Xarelto) 20 Mg Tab 20 MG PO DAILY for Blood Clot Prevention, TAB 0 Refills Simvastatin (Simvastatin) 5 Mg Tab Unknown Dose PO DAILY for Cholesterol Management, #30 TAB 0 Refills Ashutosh Mayers MD Aug 19, 2017 08:59
[2017-08-19] MEDS: CODEINE SULFATE 30 MG TAB PO PRN (09:11)
[2017-08-19] MEDS: GABAPENTIN 300 MG CAP PO SCH ×2 (09:12→12:48)
[2017-08-19] MEDS: HYDROCHLOROTHIAZIDE 25 MG TAB PO SCH (09:12)
[2017-08-19] MEDS: MORPHINE SULFATE 30 MG CONTROLLED RELEASE TAB PO SCH (09:12)
[2017-08-19] MEDS: METOPROLOL TARTRATE 50 MG TAB PO SCH (09:13)
[2017-08-19] MEDS: VANCOMYCIN INJ 1,250 MG in SODIUM CHLOR 0.9% 250 ML INJ 250 ML IV SCH (09:13)
--- NOTE | 2017-08-19 10:59 | RADRPT ---
EXAM DATE/TIME: 08/19/2017 00:00 [facility] COMPARISON : INDICATIONS : Abdominal drain removal OBJECTIVE: The patient had an abscess drain placed 08/13/17. The drainage had been tracted daily. There was less than 10 cc output per day from the drain over the last 24 hours. ASSESSMENT: The output from the drain as fallen below 10 cc. PLAN: The drain will be removed. TIME SPENT: 10 minutes. Joel Jacob MD on August 19, 2017 at 10:55 Board Certified Radiologist. This report was verified electronically.
[2017-08-19] MEDS ORDERED: SULFAMETHOXAZOLE-TRIMETHOPRIM DS 800-160 MG TAB PO SCH (11:00)
--- NOTE | 2017-08-19 11:32 | HHI.PR ---
Addendum To [facility] Progress Not Reason for addendum: Additonal documentation (spoke with IR today; drain has been removed - will dc home with po antibiotic and f/u with urology.) Ashutosh Mayers MD Aug 19, 2017 11:32
[2017-08-19 12:12] VITALS: BP 133/76; PULSE 79; RESP 18; TEMP 98.4; O2SAT 94
--- NOTE | 2017-08-19 13:33 | HHI.FF ---
Face to Face Verification Diagnosis: (1) post-o fluid collection Home Health Nursing Order: Medical education Signs/symptoms of disease process Medication education-adverse effect Nursing assessment with vital signs I have seen patient Davie Cazares on 08/19/17. My clinical findings support the need for the requested home health care services because: Ltd mobility - disease progression I certify that my clinical findings support that this patient is homebound because: Post-op weakness Ashutosh Mayers MD Aug 19, 2017 13:33
[2017-08-20] MEDS ORDERED: PHARMACY ORDERED LAB ONE (09:45)
== END 2017-08-19 14:13 | disposition home health service (06) | DRG 862 ==
LOC: NEPC 11:09 → NEDA 14:46 → N04A 17:29
PROVIDERS: ADMIT Internal Medicine; ATTEND Internal Medicine
PROC: 0W9J30Z Drainage of Pelvic Cavity with Drainage Device, Percutaneous Approach (ICD-10-PCS; principal; 2017-08-13)
DX: T81.4XXA Infection following a procedure, initial encounter (principal); A41.9 Sepsis, unspecified organism; I48.91 Unspecified atrial fibrillation; N39.0 Urinary tract infection, site not specified; G62.9 Polyneuropathy, unspecified; L02.211 Cutaneous abscess of abdominal wall; I10 Essential (primary) hypertension; E78.5 Hyperlipidemia, unspecified; H35.30 Unspecified macular degeneration; M19.90 Unspecified osteoarthritis, unspecified site; Z85.46 Personal history of malignant neoplasm of prostate; Z79.01 Long term (current) use of anticoagulants; Z86.73 Personal history of transient ischemic attack (TIA), and cerebral infarction without residual deficits; Z87.442 Personal history of urinary calculi; Z90.79 Acquired absence of other genital organ(s); Z96.653 Presence of artificial knee joint, bilateral; B95.62 Methicillin resistant Staphylococcus aureus infection as the cause of diseases classified elsewhere; R30.0 Dysuria; I25.10 Atherosclerotic heart disease of native coronary artery without angina pectoris
CPT/HCPCS: 71010; 71275; 74177; 75989; 76937; 80048; 80053; 80202; 81001; 82565; 83690; 84443; 84484; 85025; 85610; 85730; 86403; 87015; 87040; 87070; 87086; 87116; 87147; 87186; 87205; 87206; 87804; 93970; 96365; C1729; C1769; J0696; J2250; J2270; J2543; J3010; J3370; J7030; J7050; Q9967

== ENCOUNTER 2017-09-01 17:01 | Emergency (ER) | payer MEDICARE, OTHER ==
[~2017-09-01] VITALS: Ht 185.4 cm; Wt 92.0 kg
[~2017-09-01 17:01] MED LIST changes: +ATOR20TA15 PO; +HYDR25TA5 PO; -HYDR50TA3 PO; -METO25TA6 PO; +METO50TA PO; -SIMV5TAB3 PO; +XARE20TA PO
[2017-09-01 17:10] VITALS: BP 125/71; PULSE 87; RESP 16; TEMP 98.5; O2SAT 96
[2017-09-01] MEDS ORDERED: KETOROLAC TROMETHAMINE 60 MG/2 ML (IM) VIAL IM ONE (19:15)
[2017-09-01] MEDS ORDERED: ORPHENADRINE INJ 60 MG/2 ML AMP IM ONE (19:15)
--- NOTE | 2017-09-01 19:20 | PD ---
HPI . Pain Chief Complaint: Pain: Acute or Chronic Time Seen by Provider: 18:39 Travel History International Travel<30 days: No Contact w/Intl Traveler<30days: No Traveled to known affect area: No History of Present Illness HPI 72-year-old male patient presents to the emergency department for evaluation of leg, arm, back and neck pain. Patient was recently discharged from our facility after being treated for a postoperative fluid fluid collection and infection. Patient states he still feels weak from that illness but is progressively getting better. Patient denies any fevers, chills, malaise. Patient states he's been taking his medication as prescribed but today everything hurts. All extremities are neurovascularly intact and have full range of motion. Patient has no midline spinal tenderness. The back pain is paraspinal. Patient has no rashes, chest pain, shortness breath, edema, erythema. Patient denies any difficulty voiding or constipation. PFSH Past Medical History Hx Anticoagulant Therapy: Yes (XARELTO) Arthritis: Yes (rheumatoid arthritis) Asthma: No Atrial Fibrillation: Yes Blood Disorders: No Anxiety: No Heart Rhythm Problems: Yes (hx of a-fib) Cancer: Yes (prastate cancer) Cardiac Catheterization: Yes Cardiovascular Problems: Yes (HTN, A. FIB) High Cholesterol: Yes (hx of high cholesterol ) Chemotherapy: No Chest Pain: No Congestive Heart Failure: No COPD: No Cerebrovascular Accident: Yes (hx of TIAs) Coronary Artery Disease: Yes Diabetes: No Diminished Hearing: No Endocrine: No GERD: No Genitourinary: Yes (prostate cancer) Hiatal Hernia: No Heparin Induced Thrombocytopen: Yes Hypertension: Yes Immune Disorder: No Implanted Vascular Access Dvce: Yes Kidney Stones: Yes (hx of kidney stones ) Musculoskeletal: No Neurologic: No Psychiatric: No Respiratory: No Immunizations Current: Yes Migraines: No Radiation Therapy: No Renal Failure: No Seizures: No Sickle Cell Disease: No Sleep Apnea: No Thyroid Disease: No Ulcer: No Past Surgical History Abdominal Surgery: No AICD: No Arteriovenous Shunt: No Cardiac Surgery: No Ear Surgery: No Endocrine Surgery: No Eye Surgery: Yes (lasik surgery) Genitourinary Surgery: Yes (prostate surgery, J-tube in place) Gynecologic Surgery: No Insulin Pump: No Joint Replacement: Yes (both knees) Oral Surgery: No Pacemaker: No Prostatectomy: Yes Thoracic Surgery: No Other Surgery: Yes (R SHOULDER, R ANKLE) Social History Alcohol Use: No Tobacco Use: No Substance Use: No Allergies-Medications (Allergen,Severity, Reaction): Coded Allergies: No Known Allergies (Unverified , 09/01/17) Reported Meds & Prescriptions Reported Meds & Active Scripts Active Bactrim DS (Sulfamethoxazole-Trimethoprim) 800-160 Mg Tab 1 Tab PO BID 21 Days Reported Metoprolol Tartrate 50 Mg Tab 50 Mg PO DAILY Atorvastatin (Atorvastatin Calcium) 20 Mg Tab 20 Mg PO HS Xarelto (Rivaroxaban) 20 Mg Tab 20 Mg PO DAILY Hydrochlorothiazide 25 Mg Tab 25 Mg PO DAILY Gabapentin 300 Mg Cap 600 Mg PO TID Codeine Sulfate 30 Mg Tab 30 Mg PO Q4HR PRN Morphine ER (Morphine Sulfate) 30 Mg Tab 30 Mg PO BID Review of Systems Except as stated in HPI: all other systems reviewed are Neg Physical Exam Narrative GENERAL: Well-nourished, well-developed pleasant 72-year-old male patient that appears pale and is resting comfortably on the stretcher. In no acute distress. Nontoxic-appearing. SKIN: Focused skin assessment warm/dry. HEAD: Normocephalic. Atraumatic. EYES: No scleral icterus. No injection or drainage. NECK: Supple, trachea midline. No JVD or lymphadenopathy. CARDIOVASCULAR: Regular rate and rhythm without murmurs, gallops, or rubs. RESPIRATORY: Breath sounds equal bilaterally. No accessory muscle use. GASTROINTESTINAL: Abdomen soft, non-tender, nondistended. MUSCULOSKELETAL: Full range of motion noted in all extremities. All extremities neurovascularly intact. No cyanosis, or edema. BACK: No midline spinal tenderness. No obvious deformity, ecchymosis, erythema or cyanosis. No CVA tenderness. Data Data Last Documented VS Vital Signs Date Time Temp Pulse Resp B/P (MAP) Pulse Ox O2 Delivery O2 Flow Rate FiO2 09/01/17 17:10 98.5 87 16 125/71 (89) 96 Orders Orders Orphenadrine Inj (Norflex Inj) (09/01/17 19:15) Ketorolac Inj (Toradol Inj) (09/01/17 19:15) MDM Medical Decision Making Medical Screen Exam Complete: Yes Emergency Medical Condition: Yes Differential Diagnosis Differential diagnosis include but not limited to muscle strain, muscle sprain, stiff muscles, sciatic pain, nerve pain Narrative Course 72-year-old male patient presents emergency department for evaluation of generalized pain. The pain is in his legs, arms, back and neck. Patient was recently treated for postoperative infection. He currently is afebrile and states that he has not been running a fever at home. Patient states she's been taking his medication as prescribed. Patient has pain with movement. He describes the pain as stiffening in his muscles. Patient has been weak and recovering from his illness and the hospital. He is currently moving around more but is still recovering. I suspect that he is experiencing muscle pain and stiffness from increased activity after recovering from his illness. Patient will be given Norflex and Toradol IM injections and discharged home with instructions to use heating packs as needed to relax muscles and follow-up with his primary care. Diagnosis Primary Impression: Muscle pain Referrals: Primary Care Physician Patient Instructions: General Instructions, Muscle Strain (ED) Additional Instructions: Please return to emergency department if your symptoms return or worsen. Follow up with your primary care provider. Take medications as prescribed. May use heating pads as needed to help relax muscles. Stay hydrated. Diet as tolerated. Disposition: 01 DISCHARGE HOME Condition: Stable Aby Mendenhall Sep 01, 2017 19:20
== END 2017-09-01 19:41 | disposition home or self-care (01) ==
LOC: PHED 17:01 → PHEFT 19:41
DX: M79.1 Myalgia (principal); R53.1 Weakness; I10 Essential (primary) hypertension; E78.00 Pure hypercholesterolemia, unspecified; Z79.01 Long term (current) use of anticoagulants; Z87.39 Personal history of other diseases of the musculoskeletal system and connective tissue; Z86.79 Personal history of other diseases of the circulatory system; Z85.46 Personal history of malignant neoplasm of prostate; Z87.442 Personal history of urinary calculi
CPT/HCPCS: 96372; 99284; J1885; J2360

== ENCOUNTER 2018-03-26 17:38 | Emergency (ER) | payer MEDICARE, OTHER ==
[~2018-03-26] VITALS: Ht 185.4 cm; Wt 96.0 kg
[2018-03-26 17:43] VITALS: BP 140/78; PULSE 89; RESP 16; TEMP 99.7; O2SAT 95
--- NOTE | 2018-03-26 18:02 | PD ---
HPI Chief Complaint: Edema Time Seen by Provider: 18:01 Travel History International Travel<30 days: No Contact w/Intl Traveler<30days: No Traveled to known affect area: No History of Present Illness HPI 72-year-old male came to the emergency room with history of left leg swelling and pain for past 4-5 days. Patient says that about 4-5 days ago while he was doing something he felt a sharp pain in the back of his left leg near the calf and the knee area. Patient describes this as charley horse pain. He did not make much of it at that time and continued with his activity. Since then the leg has been painful. Today he came home and was in severe pain and wanted his to bring him to the emergency room. Patient says pain is worse when he is standing and walking or pushes on the back of his knee. If he is laying down and not moving the pain subsides. No history of fever or chills. No history of similar symptoms in the past. Patient is on Xarelto for history of DVT. Vital signs are stable. [facility] Past Medical History Narrative Medical List of his past medical, surgical, social and family history is reviewed from the nursing note. Hx Anticoagulant Therapy: Yes (XARELTO) Arthritis: Yes (rheumatoid arthritis) Asthma: No Atrial Fibrillation: Yes Blood Disorders: No Anxiety: No Heart Rhythm Problems: Yes (hx of a-fib) Cancer: Yes (prastate cancer) Cardiac Catheterization: Yes Cardiovascular Problems: Yes (HTN, A. FIB) High Cholesterol: Yes (hx of high cholesterol ) Chemotherapy: No Chest Pain: No Congestive Heart Failure: No COPD: No Cerebrovascular Accident: Yes (hx of TIAs) Coronary Artery Disease: Yes Diabetes: No Diminished Hearing: No Endocrine: No GERD: No Genitourinary: Yes (prostate cancer) Hiatal Hernia: No Heparin Induced Thrombocytopen: Yes Hypertension: Yes Immune Disorder: No Implanted Vascular Access Dvce: Yes Kidney Stones: Yes (hx of kidney stones ) Musculoskeletal: No Neurologic: No Psychiatric: No Respiratory: No Immunizations Current: Yes Migraines: No Radiation Therapy: No Renal Failure: No Seizures: No Sickle Cell Disease: No Sleep Apnea: No Thyroid Disease: No Ulcer: No Past Surgical History Abdominal Surgery: No AICD: No Arteriovenous Shunt: No Cardiac Surgery: No Ear Surgery: No Endocrine Surgery: No Eye Surgery: Yes (lasik surgery) Genitourinary Surgery: Yes (prostate surgery, J-tube in place) Gynecologic Surgery: No Insulin Pump: No Joint Replacement: Yes (both knees) Oral Surgery: No Pacemaker: No Prostatectomy: Yes Thoracic Surgery: No Other Surgery: Yes (R SHOULDER, R ANKLE) Social History Alcohol Use: No Tobacco Use: No Substance Use: No Allergies-Medications (Allergen,Severity, Reaction): Coded Allergies: No Known Allergies (Unverified Adverse Reaction, Unknown, 03/26/18) Comments No known drug allergies. Reported Meds & Prescriptions Reported Meds & Active Scripts Active Reported Metoprolol Tartrate 50 Mg Tab 50 Mg PO DAILY Atorvastatin (Atorvastatin Calcium) 20 Mg Tab 20 Mg PO HS Xarelto (Rivaroxaban) 20 Mg Tab 20 Mg PO DAILY Hydrochlorothiazide 25 Mg Tab 25 Mg PO DAILY Gabapentin 300 Mg Cap 600 Mg PO TID Codeine Sulfate 30 Mg Tab 30 Mg PO Q4HR PRN Morphine ER (Morphine Sulfate) 30 Mg Tab 30 Mg PO BID Narrative Medication List of his home medications reviewed from the nursing note Review of Systems Except as stated in HPI: all other systems reviewed are Neg Musculoskeletal: Positive: Edema, Pain Physical Exam Narrative GENERAL: Awake, alert, mild distress SKIN: Focused skin assessment warm/dry. Multiple scabs on the upper and lower extremities HEAD: Atraumatic. Normocephalic. EYES: Pupils equal and round. No scleral icterus. No injection or drainage. ENT: No nasal bleeding or discharge. Mucous membranes pink and moist. NECK: Trachea midline. No JVD. CARDIOVASCULAR: Regular rate and rhythm. No murmur appreciated. RESPIRATORY: No accessory muscle use. Clear to auscultation. Breath sounds equal bilaterally. GASTROINTESTINAL: Abdomen soft, non-tender, nondistended. Hepatic and splenic margins not palpable. MUSCULOSKELETAL: No obvious deformities. No clubbing. No cyanosis. No edema. Swelling of the left leg especially the calf area. Tender to touch and moderate pressure on the popliteal fossa. No pulsatile mass, redness or warmth of the overlying skin NEUROLOGICAL: Awake and alert. No obvious cranial nerve deficits. Motor grossly within normal limits. Normal speech. PSYCHIATRIC: Appropriate mood and affect; insight and judgment normal. Data Data Last Documented VS Vital Signs Date Time Temp Pulse Resp B/P (MAP) Pulse Ox O2 Delivery O2 Flow Rate FiO2 5/17/18 19:32 87 18 141/82 (101) 97 Room Air 03/26/18 17:43 99.7 Orders Orders Us Leg Soft Tissue (03/26/18 ) Complete Blood Count With Diff (03/26/18 18:11) Basic Metabolic Panel (Bmp) (03/26/18 18:11) Prothrombin Time / Inr (Pt) (03/26/18 18:11) Ed Discharge Order (03/26/18 20:48) ^ Knee Immobilizer (03/26/18 20:48) Labs Laboratory Tests Test 03/26/18 18:45 White Blood Count 7.0 TH/MM3 Red Blood Count 4.42 MIL/MM3 Hemoglobin 13.6 GM/DL Hematocrit 39.2 % Mean Corpuscular Volume 88.5 FL Mean Corpuscular Hemoglobin 30.8 PG Mean Corpuscular Hemoglobin Concent 34.8 % Red Cell Distribution Width 13.8 % Platelet Count 152 TH/MM3 Mean Platelet Volume 9.2 FL Neutrophils (%) (Auto) 69.8 % Lymphocytes (%) (Auto) 14.8 % Monocytes (%) (Auto) 10.2 % Eosinophils (%) (Auto) 4.4 % Basophils (%) (Auto) 0.8 % Neutrophils # (Auto) 4.9 TH/MM3 Lymphocytes # (Auto) 1.0 TH/MM3 Monocytes # (Auto) 0.7 TH/MM3 Eosinophils # (Auto) 0.3 TH/MM3 Basophils # (Auto) 0.1 TH/MM3 CBC Comment DIFF FINAL Differential Comment Prothrombin Time 10.8 SEC Prothromb Time International Ratio 1.1 RATIO Blood Urea Nitrogen 17 MG/DL Creatinine 1.20 MG/DL Random Glucose 123 MG/DL Calcium Level 8.4 MG/DL Sodium Level 139 MEQ/L Potassium Level 4.0 MEQ/L Chloride Level 105 MEQ/L Carbon Dioxide Level 26.9 MEQ/L Anion Gap 7 MEQ/L Estimat Glomerular Filtration Rate 59 ML/MIN [facility] Medical Decision Making Medical Screen Exam Complete: Yes Emergency Medical Condition: Yes Medical Record Reviewed: Yes Differential Diagnosis Ruptured Mendosa's cyst, muscle hematoma Narrative Course 6:47 PM awaiting for blood test and ultrasound to be done and resulted. 8:48 PM ultrasound shows a fluid collection which could be as per the radiologist either a Mendosa cyst or hematoma. I will discharge the patient home on knee immobilizer and ask him to hold off on his blood thinners for the next 48 hours. Leg elevation and cold compresses would be helpful as well. Procedures EKG Prior to Arrival: No Diagnosis Primary Impression: Mendosa's cyst of knee Qualified Codes: M71.22 - Synovial cyst of popliteal space [Mendosa], left knee Additional Impression: Leg pain, left Referrals: Primary Care Physician 3 days Additional Instructions: Keep the knee immobilizer on at all times except for taking shower for next 2-3 days. Keep the leg elevated and apply ice pack. Hold off on your blood thinner for next 2 days. Follow-up with your primary care next couple days. Disposition: 01 DISCHARGE HOME Condition: Stable Liam Lemus MD March 26, 2018 18:02
[2018-03-26 18:59] LABS: AUTOMATED NEUTROPHIL # 4.9 TH/MM3 (1.8-7.7); BASOPHIL # 0.1 TH/MM3 (0-0.2); BASOPHIL % 0.8 % (0.0-2.0); EOSINOPHIL # 0.3 TH/MM3 (0-0.4); EOSINOPHIL % 4.4 % (0.0-4.0); HEMATOCRIT 39.2 % (39.0-51.0); HEMOGLOBIN 13.6 GM/DL (13.0-17.0); LYMPH % 14.8 % (9.0-44.0); MEAN CELL VOLUME 88.5 FL (80.0-100.0); MEAN CORPUSCULAR HEMOGLOBIN 30.8 PG (27.0-34.0); MEAN CORPUSCULAR HGB CONC 34.8 % (32.0-36.0); MEAN PLATELET VOLUME 9.2 FL (7.0-11.0); MONO % 10.2 % (0.0-8.0); MONOCYTE # 0.7 TH/MM3 (0-0.9); NEUT % 69.8 % (16.0-70.0); PLATELET COUNT 152 TH/MM3 (150-450); RED BLOOD COUNT 4.42 MIL/MM3 (4.50-5.90); RED CELL DISTRIBUTION WIDTH 13.8 % (11.6-17.2)
[2018-03-26 19:09] LABS: BICARBONATE 26.9 MEQ/L (21.0-32.0); CALCIUM 8.4 MG/DL (8.5-10.1)
[2018-03-26 19:10] LABS: INTERNATIONAL NORMALIZED RATIO 1.1 RATIO; PROTHROMBIN TIME - PATIENT 10.8 SEC (9.8-11.6)
[2018-03-26 19:13] LABS: CREATININE 1.2 MG/DL (0.60-1.30)
[2018-03-26 19:32] VITALS: BP 141/82; PULSE 87; RESP 18; O2SAT 97
--- NOTE | 2018-03-26 20:43 | RADRPT ---
EXAM DATE/TIME: 03/26/2018 19:18 [facility] COMPARISON: No previous studies available for comparison. INDICATIONS : Left calf pain and swelling. MEDICAL HISTORY : Hypertension. Hypercholesterolemia. Atrial fibrillation. Coronary artery disease. Transient ische panda attacks. Prostate cancer. SURGICAL HISTORY : Left knee replacement. ENCOUNTER: Initial ACUITY: 4-6 days PAIN SCORE: 8/10 LOCATION: Left posterior calf and popliteal fossa AREA EVALUATED: Popliteal fossa FINDINGS: There is a complex hypoechoic area seen in the left popliteal fossa measuring 11.7 x 2.5 x 4.9 cm. Th is is likely related to a complex Mendosa's cyst versus a hematoma. The popliteal artery and vein appea r normal. CONCLUSION: Complex cystic mass in the posterior upper left calf likely related to a Mendosa's cyst or hematoma. Mikal Segura MD on March 26, 2018 at 20:40 Board Certified Radiologist. This report was verified electronically.
[2018-03-26 21:13] VITALS: BP 136/80; PULSE 82; RESP 18; O2SAT 97
== END 2018-03-26 21:16 | disposition home or self-care (01) ==
LOC: PHED 17:38
DX: M71.22 Synovial cyst of popliteal space [Baker], left knee (principal); M79.605 Pain in left leg; M06.9 Rheumatoid arthritis, unspecified; I48.91 Unspecified atrial fibrillation; I10 Essential (primary) hypertension; I25.10 Atherosclerotic heart disease of native coronary artery without angina pectoris; E78.00 Pure hypercholesterolemia, unspecified; Z86.718 Personal history of other venous thrombosis and embolism; Z86.73 Personal history of transient ischemic attack (TIA), and cerebral infarction without residual deficits
CPT/HCPCS: 76882; 80048; 85025; 85610; 99284; E0113; L1830